=== PATIENT | female | born 1970 | race Caucasian/White ===

== ENCOUNTER 2019-03-13 17:19 | Observation (INO) ==
[2019-03-13] MEDS ORDERED: IOPAMIDOL 100 ML BOTTLE IV ONE (17:20)
[2019-03-13] MEDS ORDERED: ONDANSETRON 4 MG/2 ML VIAL IV ONE ×2 (17:31→20:07)
[2019-03-13] MEDS ORDERED: 0.9 % SODIUM CHLORIDE 1,000 ML IV ONE ×2 (17:31→22:30)
--- NOTE | 2019-03-13 17:33 | Emergency Department Note ---
Abdominal Pain HPI - General Chief Complaint: Nausea/Vomiting/Diarrhea Stated Complaint: Vomiting Time Seen by Provider: 03/13/19 17:24 Source: patient Mode of arrival: ambulatory Limitations: no limitations - History of Present Illness HPI Narrative: This 48-year-old female presents to the emergency room with onset 7 AM this morning of vomiting and abdominal pain. She is vomited more than 12 times. Sometimes she tries to drink water then vomits up green. Once it was a little red. She did not eat well yesterday. She has a previous emergency room visit around [facility] for similar. This time it is worse in location is above the [facility]. She rates her pain 7-8/10. She denies radiation. She has her gallbladder and appendix. She has had some associated chills and sweats but no fevers. REVIEW OF SYSTEMS: Denies chest pain Some shortness of breath she attributes to her pain Denies dysuria. Does have some leaking urine from ordering vomiting Has some associated headache and dizziness. Is on chronic tramadol 3 times daily for peripheral neuropathy. - Related Data Home Medications Medication Instructions Recorded Confirmed Amitriptyline HCl 25 - 50 mg PO HS 02/28/18 12/30/18 Gabapentin [Gralise] 800 mg PO TID 02/28/18 12/30/18 Insulin Detemir [Levemir] 24 unit SQ HS 02/28/18 12/30/18 Zolpidem [Ambien] 10 mg PO HSP PRN 02/28/18 12/30/18 amitriptyline 10 mg tablet 20 mg PO QHS 12/30/18 12/30/18 ascorbic acid (vitamin C) 250 mg 250 mg PO TID tab 12/30/18 12/30/18 tablet blood sugar diagnostic strips See Dose Instructions .ROUTE 12/30/18 12/30/18 .MEDSUPPLY #10 each blood-glucose meter See Dose Instructions .ROUTE 12/30/18 12/30/18 .MEDSUPPLY #1 each cephalexin 500 mg capsule 500 mg PO BID 12/30/18 12/30/18 chlorhexidine gluconate 0.12 % 15 ml MUCOUS MEM BID 12/30/18 12/30/18 mouthwash chlorhexidine gluconate 0.12 % 15 ml MUCOUS MEM BID 12/30/18 12/30/18 mouthwash ferrous sulfate 325 mg (65 mg 650 mg PO TID tab 12/30/18 12/30/18 iron) tablet fluticasone propionate 50 2 spray INTRANASAL BID g 12/30/18 12/30/18 mcg/actuation nasal spray,suspension insulin detemir (U-100) 100 See Rx Instructions SUB-Q .COMPLEX 12/30/18 12/30/18 unit/mL (3 mL) subcutaneous pen omeprazole 20 mg capsule,delayed 20 mg PO QDAY 12/30/18 12/30/18 release paroxetine 20 mg tablet 20 mg PO QDAY 12/30/18 12/30/18 simvastatin 10 mg tablet 10 mg PO QPM 12/30/18 12/30/18 vitamin B complex tablet 1 tab PO QDAY 12/30/18 12/30/18 Previous Rx's Medication Instructions Recorded Amitriptyline [Elavil] 25 mg PO HS #15 tab 03/24/18 Gabapentin [Neurontin] 300 mg PO TID #45 cap 03/24/18 Zolpidem Tartrate [Ambien] 10 mg PO QHS PRN #10 tab 03/24/18 Amitriptyline [Elavil] 25 mg PO HS #15 tab 04/23/18 Zolpidem Tartrate [Ambien] 10 mg PO HSP PRN #10 tab 04/23/18 traMADol [Ultram] 50 - 100 mg PO Q4-6HP PRN #30 tab 04/23/18 Clindamycin HCl [Cleocin] 300 mg PO QID #40 cap 06/03/18 Etodolac [Lodine] 400 mg PO BIDP PRN #20 tab 06/03/18 HYDROcodone/APAP 5/325MG [[place] 1 tab PO Q4HP PRN #12 tab 06/28/18 5-325Mg] Ondansetron [Zofran ODT] 4 mg SL Q4-6HP PRN #10 tab 06/28/18 Promethazine [Phenergan] 12.5 mg [place] Q4-6HP PRN #10 supp.rect 08/29/18 Acetaminophen W/Codeine #3 1 tab PO Q4-6HP PRN #10 tab 01/08/19 [Tylenol #3] Allergies Allergy/AdvReac Type Severity Reaction Status Date / Time Penicillins [PENICILLINS] Allergy Unknown UNK Verified 03/13/19 17:19 pregabalin [From Lyrica] Allergy Unknown Hives Verified 03/13/19 17:19 morphine AdvReac Unknown Unknown Verified 03/13/19 17:19 BEE STING Allergy Unknown UNK Uncoded 03/11/15 01:24 Abdominal Pain PMH - Past Medical History [facility] Narrative: Medical History (Last Updated 03/13/19 @ 18:10 by Kole De La Paz DO) DKA (diabetic ketoacidoses) (Chronic) Cerebrovascular accident (CVA) (Chronic ~05/02/18) Diabetes mellitus (Chronic) Hyperlipidemia (Chronic) HTN (hypertension) (Chronic) Microalbuminuria (Chronic) Pain in both feet (Chronic ~07/11/18) Obese (Chronic) Insomnia (Chronic) Constipation (Chronic) Polyp of left nasal cavity (Chronic) Snoring (Chronic) Ringing in the ears (Chronic) Memory loss (Chronic) Mood swings (Chronic) Restless sleeper (Chronic) Sleep disturbance (Chronic) Tremor (Chronic) Restless leg (Chronic) Severe headache (Chronic) Frequent headaches (Chronic) Numbness (Chronic) Weakness (Chronic) Itching (Chronic) Arthralgia (Chronic) Muscle weakness (Chronic) Muscle ache (Chronic) Neck pain (Chronic) Black tarry stools (Chronic) Sinus problem (Chronic) Difficulty hearing (Chronic) Weight gain (Chronic) Hydrosalpinx (Chronic) Hiatal hernia (Chronic) Anemia (Chronic ~02/22/18) Eosinophilic esophagitis (Chronic ~07/03/18) Skin lesion (Chronic ~07/11/18) Complex regional pain syndrome (Chronic ~07/11/18) Chronic depression (Chronic) Anxiety (Chronic) Fatigue (Chronic) Dental caries (Chronic) Gastritis (Chronic) Blurred vision (Resolved) Contusion of left foot (Resolved) Cystitis (Resolved) Fracture, rib (Resolved ~02/22/18) Fracture, tooth (Resolved) Headache (Resolved) Light headed (Resolved) Nausea (Resolved) Near syncope (Resolved ~05/02/18) Pain, dental (Resolved) Paresthesia of hand (Resolved) Pyelonephritis (Resolved) Rib fracture (Resolved) Runny nose (Resolved) SOB (shortness of breath) (Resolved) Sepsis (Resolved) Sneezing (Resolved) Sore throat (Resolved) Syncope (Resolved) UTI (urinary tract infection) (Resolved ~05/02/18) Vision changes (Resolved) Past Surgical History (Last Updated 12/30/18 @ 13:31 by Tammy Banuelos) History of (Chronic) History of colonoscopy (Chronic ~05/17/17) History of esophagogastroduodenoscopy (EGD) (Chronic ~05/17/17) History of tonsillectomy (Chronic) History of tubal ligation (Chronic) Family History (Last Updated 12/30/18 @ 13:26 by Tammy Banuelos) Brother Asthma Grandmother Heart disease Medical history: Reports: CVA (Caused by severe kidney infection.), DM (Type II now insulin using chronically.), other (Anemia (iron deficiency). Pyelonephritis. Peripheral neuropathy. Chronic insomnia.). Denies: cancer, CAD (coronary artery disease), hyperlipidemia, hypertension, myocardial infarction, thyroid disease Denies: kidney stone, peptic ulcer disease Psychiatric history: Reports: anxiety, depression DIVISION LEADER history: Reports: non-contributory - Social History Smoking status: Never smoker Alcohol use: Reports: None (Quit summer 2016) Drug use: Reports: none, marijuana (About every other day) Physical Exam Limitations: no limitations General appearance: alert, in distress (Writhhing or grabbing in pain and moaning or even crying out at other times is able to smile and times is engaging and sits up easily and well.), in no apparent distress Head: atraumatic, normocephalic Eye: Present: EOMI. Absent: nystagmus ENT: normal oropharynx, mucous membranes dry Neck: Present: trachea midline. Absent: lymphadenopathy, thyromegaly Chest: Present: symmetric chest wall rise Respiratory: Present: normal lung sounds bilaterally. Absent: respiratory distress, wheezes, stridor, accessory muscle use, prolonged expiratory phase Cardiovascular: Present: regular rate, normal rhythm. Absent: systolic murmur, diastolic murmur Abdominal: Present: soft, tenderness. Absent: distention, guarding, rebound, rigidity, organomegaly, mass Abdominal tenderness: Present: diffuse Extremities: Absent: pedal edema, pretibial edema, calf tenderness Back: Absent: CVA tenderness (R), CVA tenderness (L), spinous process tenderness Neurological: Present: alert, oriented X3 Psychiatric: Present: normal affect, normal mood Skin: Present: warm, dry Course Vital Signs Temperature 96.0 F L 03/13/19 17:19 Pulse Rate 105 H 03/13/19 17:19 Respiratory Rate 22 03/13/19 17:19 Blood Pressure 165/88 03/13/19 17:19 Pulse Oximetry (%) 100 03/13/19 17:19 Temperature 96.0 F L 03/13/19 17:19 Pulse Rate 103 H 03/13/19 20:01 Respiratory Rate 22 03/13/19 17:19 Blood Pressure 132/79 03/13/19 20:01 Pulse Oximetry (%) 100 03/13/19 20:01 Abdominal Pain - MDM Narrative Medical decision making narrative: 5:50 PM -rather significant abdominal pain with nausea and vomiting. Will do 2 view x-ray and labs. Will do ultrasound. 6:14 PM - x-ray shows no dilated loops or air-fluid levels and is actually fairly absent of much gas and fairly solid with stool but not so much low in the rectum. Await official read. Will do ultrasound based on age, obesity and location of pain to rule out gallbladder. 6:30 PM approximately - X-ray read as unremarkable abdomen 2 view series. 6:41 PM - US demonstrates mildly enlarged liver (nothing else); tiny polyp in gall bladder. Pain was distractible. 7:00 PM approximately - I discussed with patient options - encouraged for to have enema now to see if can be helpful. She agrees. 9:10 PM - Enema made no difference for improving her pain or making it worse. No stool output. Must do CT now as her pain remains unexplained and was quite severe. Could be gastroparesis related pain syndrome but was more sudden and severe. Consider renal stones but seems wrong pattern/location. 10:00 PM - CT result (abd pelvis) still pending. Signing over patient to Dr. Leary who is coming on for evening 1/2 shift. Pt is aware. - Medical Records Medical records reviewed: Yes I reviewed the patient's medical records. - Lab Data Lab results reviewed: Yes I reviewed the patient's lab results. Result diagrams: 03/13/19 17:46 03/13/19 17:46 Lab Results 03/13/19 03/13/19 03/13/19 Range/Units 17:46 17:46 19:20 WBC 11.3 H (4.5-11.0) K/mcL RBC 4.33 (4.00-5.20) M/mcL Hgb 12.4 (12.0-15.0) g/dL Hct 37.8 (36.0-48.0) % MCV 87.4 (80.0-100.0) fL MCH 28.7 (26.0-34.0) pg MCHC 32.8 (31.0-36.0) g/dL RDW 14.5 (11.5-14.5) % Plt Count 284 (140-440) K/mcL MPV 9.1 (7.4-10.4) fL Gran % 92.4 H (38.0-78.0) % Lymph % (Auto) 7.0 L (15.5-49.0) % [place] % (Auto) 0.4 L (1.0-12.0) % Eos % (Auto) 0.2 (0.0-7.0) % Baso % (Auto) 0 (0.0-2.0) % Gran # 10.4 H (1.8-8.0) K/mcL Lymph # (Auto) 0.8 L (1.5-4.8) K/mcL [place] # (Auto) 0 L (0.1-0.9) K/mcL Eos # (Auto) 0 (0.0-0.7) K/mcL Baso # (Auto) 0 (0.0-0.3) K/mcL Sodium 137 (133-145) mmol/L Potassium 4.6 (3.3-5.1) mmol/L Chloride 99 (96-108) mmol/L Carbon Dioxide 23 (22-30) mmol/L Anion Gap 15.0 (8-16) BUN 14 (6-20) mg/dl Creatinine 0.8 (0.6-1.1) mg/dl GFR Calculation 87 Glucose 269 H (70-105) mg/dL Calcium 9.7 (8.6-10.4) mg/dl Total Bilirubin 0.3 (0.0-1.0) mg/dL AST 20 (0-37) U/l ALT 23 (0-40) U/l Alkaline Phosphatase 108 (39-117) U/L C-Reactive Protein 0.5 (0.0-0.8) mg/dl Total Protein 7.6 (5.9-8.4) gm/dL Albumin 4.2 (3.2-5.2) gm/dL Globulin 3.4 (2.2-3.7) gm/dL Albumin/Globulin Ratio 1.2 (1.0-2.3) Lipase 19 (7-60) U/L Urine Color Yellow Urine Appearance Clear Urine pH 6.0 (5.0-9.0) Ur Specific [place] 1.021 (1.000-1.035) Urine Protein >=500 A (NEG) mg/dL Urine Glucose (UA) >=500 A (NEG) mg/dL Urine Ketones 20 A (NEG) mg/dL Urine Occult Blood 0.03 A (<0.03) mg/dL Urine Nitrate Neg (NEG) Urine Bilirubin Neg (NEG) mg/dL Urine Urobilinogen Neg (NEG) mg/dL Ur Leukocyte Esterase Neg (NEG) /uL Urine RBC 6 H (0-1) /hpf Urine WBC 2 (0-4) /hpf Ur Squamous Epith Cells 2 (0-4) /hpf Urine Bacteria Few A (0) /hpf Hyaline Casts 14 H (0-2) /lpf Urine Mucus Few (0) /hpf Ur Culture Indicated? Yes - Radiology Data Radiology results reviewed: Yes I reviewed the patient's radiology results. Disposition Pt seen by LEAD IOS DEVELOPER/PA only: No Clinical Impression: Abdominal pain Qualifiers: Abdominal location: generalized Qualified Code(s): R10.84 - Generalized abdominal pain Disposition: Still a Patient Condition: Undetermined Referrals: Janice Chen MD [Primary Care Provider] -
[2019-03-13] MEDS ORDERED: PHENobarb/HYOSCY/ATROPINE/SCOP 1 DOSE BOTTLE PO ONE (17:57)
--- NOTE | 2019-03-13 18:16 | XRay Report ---
CLINICAL INFORMATION: abdom pain COMPARISON: 06/28/2018 FINDINGS: The stool gas pattern is unremarkable. There is no free air, soft tissue mass, organomegaly or pathologic calcification. Multiple phleboliths of the pelvis are unchanged IMPRESSION: Normal abdomen Interpreted and Authenticated by: Leonardo Simons 03/13/19
[2019-03-13 18:33] LABS: Basophils # (Auto) 0 K/mcL (0.0-0.3); Basophils % (Auto) 0 % (0.0-2.0); Eosinophils # (Auto) 0 K/mcL (0.0-0.7); Eosinophils % (Auto) 0.2 % (0.0-7.0); Granulocytes % (Auto) 92.4 % (38.0-78.0); Hematocrit 37.8 % (36.0-48.0); Hemoglobin 12.4 g/dL (12.0-15.0); Lymphocytes # (Auto) 0.8 K/mcL (1.5-4.8); Mean Cell Volume 87.4 fL (80.0-100.0); Mean Corpuscular HGB Conc 32.8 g/dL (31.0-36.0); Mean Platelet Volume 9.1 fL (7.4-10.4); Monocytes # (Auto) 0 K/mcL (0.1-0.9); Monocytes % (Auto) 0.4 % (1.0-12.0); Platelet Count 284 K/mcL (140-440); RBC 4.33 M/mcL (4.00-5.20); Red Cell Distribution Width 14.5 % (11.5-14.5); WBC 11.3 K/mcL (4.5-11.0)
[2019-03-13 18:55] LABS: ALT/SGPT 23 U/l (0-40); AST/SGOT 20 U/l (0-37); Albumin 4.2 gm/dL (3.2-5.2); Albumin/Globulin Ratio 1.2 (1.0-2.3); Alkaline Phosphatase 108 U/L (39-117); Bilirubin,Total 0.3 mg/dL (0.0-1.0); Blood Urea Nitrogen 14 mg/dl (6-20); C-Reactive Protein 0.5 mg/dl (0.0-0.8); Calcium 9.7 mg/dl (8.6-10.4); Carbon Dioxide 23 mmol/L (22-30); Chloride 99 mmol/L (96-108); Globulin 3.4 gm/dL (2.2-3.7); Glomerular Filtration Rate 87; Glucose 269 mg/dL (70-105); Lipase 19 U/L (7-60); Potassium 4.6 mmol/L (3.3-5.1); Sodium 137 mmol/L (133-145)
--- NOTE | 2019-03-13 19:11 | Ultrasound Report ---
CLINICAL INFORMATION: RUQ abdom pain X 7d COMPARISON: None. FINDINGS: A 2 mm polyp in the gallbladder. Gallbladder otherwise normal. Common bile duct is normal: 3 mm. The right kidney, pancreas are unremarkable. The liver is moderately enlarged with a vertical dimension of 20 cm. IMPRESSION: Moderate hepatomegaly Interpreted and Authenticated by: Leonardo Simons 03/13/19
[2019-03-13] MEDS ORDERED: HYDROmorphone 2 MG/ML VIAL IM ONE (19:41)
[2019-03-13 20:21] LABS: Appearance,Urine CLEAR; Bacteria,Urine FEW /hpf (0); Bilirubin,Urine NEG (NEG); Color,Urine YELLOW; Culture Indicated,Urine YES; Glucose,Urine (UA) >=500 mg/dL (NEG); Ketones,Urine 20 mg/dL (NEG); Leukocyte Esterase,Urine NEG /uL (NEG); Mucus,Urine FEW /hpf (0); Nitrate,Urine NEG (NEG); Protein,Urine >=500 mg/dL (NEG); Specific Gravity,Urine 1.021 (1.000-1.035); Urine Blood 0.03 mg/dL (<0.03); Urine Hyaline Cast 14 /lpf (0-2); Urine RBC 6 /hpf (0-1); Urine Squamous Epithelial Cell 2 /hpf (0-4); Urine WBC 2 /hpf (0-4); Urobilinogen,Urine NEG (NEG)
[2019-03-13] MEDS ORDERED: cefTRIAXone 2 GM in DEXTROSE 5% IN WATER 50 ML IV ONE (22:24)
--- NOTE | 2019-03-13 22:32 | Emergency Department Note ---
Nausea/Vomiting/Diarrhea HPI - General Chief complaint: Nausea/Vomiting/Diarrhea Stated complaint: Vomiting Time Seen by Provider: 03/13/19 17:24 Source: patient Mode of arrival: ambulatory Limitations: no limitations - History of Present Illness HPI Narrative: 48-year-old female checked out to me at shift change by Dr. De La Paz. I reviewed his note - Related Data Home Medications Medication Instructions Recorded Confirmed Amitriptyline HCl 25 - 50 mg PO HS 02/28/18 12/30/18 Gabapentin [Gralise] 800 mg PO TID 02/28/18 12/30/18 Insulin Detemir [Levemir] 24 unit SQ HS 02/28/18 12/30/18 Zolpidem [Ambien] 10 mg PO HSP PRN 02/28/18 12/30/18 amitriptyline 10 mg tablet 20 mg PO QHS 12/30/18 12/30/18 ascorbic acid (vitamin C) 250 mg 250 mg PO TID tab 12/30/18 12/30/18 tablet blood sugar diagnostic strips See Dose Instructions .ROUTE 12/30/18 12/30/18 .MEDSUPPLY #10 each blood-glucose meter See Dose Instructions .ROUTE 12/30/18 12/30/18 .MEDSUPPLY #1 each cephalexin 500 mg capsule 500 mg PO BID 12/30/18 12/30/18 chlorhexidine gluconate 0.12 % 15 ml MUCOUS MEM BID 12/30/18 12/30/18 mouthwash chlorhexidine gluconate 0.12 % 15 ml MUCOUS MEM BID 12/30/18 12/30/18 mouthwash ferrous sulfate 325 mg (65 mg 650 mg PO TID tab 12/30/18 12/30/18 iron) tablet fluticasone propionate 50 2 spray INTRANASAL BID g 12/30/18 12/30/18 mcg/actuation nasal spray,suspension insulin detemir (U-100) 100 See Rx Instructions SUB-Q .COMPLEX 12/30/18 12/30/18 unit/mL (3 mL) subcutaneous pen omeprazole 20 mg capsule,delayed 20 mg PO QDAY 12/30/18 12/30/18 release paroxetine 20 mg tablet 20 mg PO QDAY 12/30/18 12/30/18 simvastatin 10 mg tablet 10 mg PO QPM 12/30/18 12/30/18 vitamin B complex tablet 1 tab PO QDAY 12/30/18 12/30/18 Previous Rx's Medication Instructions Recorded Amitriptyline [Elavil] 25 mg PO HS #15 tab 03/24/18 Gabapentin [Neurontin] 300 mg PO TID #45 cap 03/24/18 Zolpidem Tartrate [Ambien] 10 mg PO QHS PRN #10 tab 03/24/18 Amitriptyline [Elavil] 25 mg PO HS #15 tab 04/23/18 Zolpidem Tartrate [Ambien] 10 mg PO HSP PRN #10 tab 04/23/18 traMADol [Ultram] 50 - 100 mg PO Q4-6HP PRN #30 tab 04/23/18 Clindamycin HCl [Cleocin] 300 mg PO QID #40 cap 06/03/18 Etodolac [Lodine] 400 mg PO BIDP PRN #20 tab 06/03/18 HYDROcodone/APAP 5/325MG [[place] 1 tab PO Q4HP PRN #12 tab 06/28/18 5-325Mg] Ondansetron [Zofran ODT] 4 mg SL Q4-6HP PRN #10 tab 06/28/18 Promethazine [Phenergan] 12.5 mg [place] Q4-6HP PRN #10 supp.rect 08/29/18 Acetaminophen W/Codeine #3 1 tab PO Q4-6HP PRN #10 tab 01/08/19 [Tylenol #3] Allergies Allergy/AdvReac Type Severity Reaction Status Date / Time Penicillins [PENICILLINS] Allergy Unknown UNK Verified 03/13/19 17:19 pregabalin [From Lyrica] Allergy Unknown Hives Verified 03/13/19 17:19 morphine AdvReac Unknown Unknown Verified 03/13/19 17:19 BEE STING Allergy Unknown UNK Uncoded 03/11/15 01:24 Past Medical History - Past Medical History Medical history: Reports: CVA (Caused by severe kidney infection.), DM (Type II now insulin using chronically.), other (Anemia (iron deficiency). Pyelonephritis. Peripheral neuropathy. Chronic insomnia.). Denies: cancer, CAD (coronary artery disease), hyperlipidemia, hypertension, myocardial infarction, thyroid disease Psychiatric history: Reports: anxiety, depression UNCLAIMED PROPERTY MANAGER history: Reports: non-contributory Surgical history ED: Reports: (x2), tonsillectomy, tubal ligation - Social History smoking status: Never smoker Alcohol use: Reports: None (Quit summer 2016) Drug use: Reports: none, marijuana (About every other day) Physical Exam Limitations: no limitations General appearance: alert, in distress (Writhhing or grabbing in pain and moaning or even crying out at other times is able to smile and times is engaging and sits up easily and well.), in no apparent distress Course Vital Signs Temperature 96.0 F L 03/13/19 17:19 Pulse Rate 105 H 03/13/19 17:19 Respiratory Rate 22 03/13/19 17:19 Blood Pressure 165/88 03/13/19 17:19 Pulse Oximetry (%) 100 03/13/19 17:19 Temperature 96.0 F L 03/13/19 17:19 Pulse Rate 103 H 03/13/19 20:01 Respiratory Rate 22 03/13/19 17:19 Blood Pressure 132/79 03/13/19 20:01 Pulse Oximetry (%) 100 03/13/19 20:01 Nausea/Vomiting/Diarrhea - Lab Data Lab results reviewed: Yes I reviewed the patient's lab results. Result diagrams: 03/13/19 17:46 03/13/19 17:46 Lab Results 03/13/19 03/13/19 03/13/19 Range/Units 17:46 17:46 19:20 WBC 11.3 H (4.5-11.0) K/mcL RBC 4.33 (4.00-5.20) M/mcL Hgb 12.4 (12.0-15.0) g/dL Hct 37.8 (36.0-48.0) % MCV 87.4 (80.0-100.0) fL MCH 28.7 (26.0-34.0) pg MCHC 32.8 (31.0-36.0) g/dL RDW 14.5 (11.5-14.5) % Plt Count 284 (140-440) K/mcL MPV 9.1 (7.4-10.4) fL Gran % 92.4 H (38.0-78.0) % Lymph % (Auto) 7.0 L (15.5-49.0) % [place] % (Auto) 0.4 L (1.0-12.0) % Eos % (Auto) 0.2 (0.0-7.0) % Baso % (Auto) 0 (0.0-2.0) % Gran # 10.4 H (1.8-8.0) K/mcL Lymph # (Auto) 0.8 L (1.5-4.8) K/mcL [place] # (Auto) 0 L (0.1-0.9) K/mcL Eos # (Auto) 0 (0.0-0.7) K/mcL Baso # (Auto) 0 (0.0-0.3) K/mcL Sodium 137 (133-145) mmol/L Potassium 4.6 (3.3-5.1) mmol/L Chloride 99 (96-108) mmol/L Carbon Dioxide 23 (22-30) mmol/L Anion Gap 15.0 (8-16) BUN 14 (6-20) mg/dl Creatinine 0.8 (0.6-1.1) mg/dl GFR Calculation 87 Glucose 269 H (70-105) mg/dL Calcium 9.7 (8.6-10.4) mg/dl Total Bilirubin 0.3 (0.0-1.0) mg/dL AST 20 (0-37) U/l ALT 23 (0-40) U/l Alkaline Phosphatase 108 (39-117) U/L C-Reactive Protein 0.5 (0.0-0.8) mg/dl Total Protein 7.6 (5.9-8.4) gm/dL Albumin 4.2 (3.2-5.2) gm/dL Globulin 3.4 (2.2-3.7) gm/dL Albumin/Globulin Ratio 1.2 (1.0-2.3) Lipase 19 (7-60) U/L Urine Color Yellow Urine Appearance Clear Urine pH 6.0 (5.0-9.0) Ur Specific [place] 1.021 (1.000-1.035) Urine Protein >=500 A (NEG) mg/dL Urine Glucose (UA) >=500 A (NEG) mg/dL Urine Ketones 20 A (NEG) mg/dL Urine Occult Blood 0.03 A (<0.03) mg/dL Urine Nitrate Neg (NEG) Urine Bilirubin Neg (NEG) mg/dL Urine Urobilinogen Neg (NEG) mg/dL Ur Leukocyte Esterase Neg (NEG) /uL Urine RBC 6 H (0-1) /hpf Urine WBC 2 (0-4) /hpf Ur Squamous Epith Cells 2 (0-4) /hpf Urine Bacteria Few A (0) /hpf Hyaline Casts 14 H (0-2) /lpf Urine Mucus Few (0) /hpf Ur Culture Indicated? Yes - Radiology Data Radiology results reviewed: Yes I reviewed the patient's radiology results. CT scan abdomen pelvis with contrast read by Guillermo showed thickened bladder wall as well as heterogenous kidneys-they recommend evaluate for pyelonephritis Disposition Pt seen by PHYSICAL CHEMISTRY PROFESSOR/PA only: No Clinical Impression: Pyelonephritis, Dehydration Nausea & vomiting Qualifiers: Vomiting type: unspecified Vomiting Intractability: unspecified Qualified Code(s): R11.2 - Nausea with vomiting, unspecified Summary: Patient had an episode of nausea and vomiting after returning from CT scan despite having 2 doses of Zofran. She has received 1 L of normal saline Initial urine microscopic shows bacturia and she is mildly tachycardic. I wrote for another liter of fluid because her dipstick head showed a specific gravity of 1.030 X-ray of the abdomen 2 views showed moderate stool burden but otherwise unremarkable. Ultrasound of the abdomen was then performed which showed large liver but normal gallbladder and common bile duct. CT was done to further sort out her belly pain-it showed heterogenous kidneys which could be compatible with pyelonephritis versus contrast phase. Additionally showed thickened bladder wall. This was the [facility] read I wrote for 2 g of IV Rocephin because of likelihood of pyelonephritis. I discussed the situation with the patient and she is still having significant nausea despite Zofran. I do not think she will tolerate p.o. antibiotics at home nor will she be able to take her home medicines so she will need to come in the hospital. I then discussed the situation with Dr. Bach, our hospitalist, who agreed to accept the patient for further care and evaluation. Disposition: Xfer As Inpt ([facility]) Condition: Fair Referrals: Janice Chen MD [Primary Care Provider] -
[2019-03-13] MEDS ORDERED: PROMETHAZINE 25 MG/ML VIAL IV ONE (22:41)
--- NOTE | 2019-03-13 23:39 | Internal Med History&Physical ---
Medical - H&P: HPI Patient information: Note initiated : 03/13/19 at 11:34 pm Service Date, if different from initiated Date: [] Patient: Alexsandra Stewart a 48 y/o F admitted on for Vomiting. Chief Complaint: [] History of present illness: Ms. Stewart is a 48 year old F with history of diabetes uses insulin presents to the emergency room today for evaluation of abdominal pain. The patient notes she was at her baseline status until this morning, she did not eat anything unusual yesterday she woke up this morning with abdominal pain just above her bellybutton cramping nonradiating worse with eating something. Around 10-12 times she has vomited and has persistent nausea. There is no blood in the vomitus, she denies any melena. Since her symptoms are not improving she decided to come to the emergency room for further evaluation. She admits to having some chills but no documented fever feels hot and cold according to her. She denies any urinary complaints has chronic pain syndrome, she also admits to having some headache. She denies any cough chest pain shortness of breath skin rashes anxiety depression or any other acute concerns. In the emergency room on presentation patient was hemodynamically stable afebrile heart rate 105 blood pressure 1 7588 saturating 90% on room air. WC count is 11.3 92% is neutrophils hemoglobin is 12.4, platelets are 284. Sodium 137 potassium 4.6 bicarbonate 23 BUN 14 creatinine 0.8 glucose 269 UA is positive for proteinuria and glucosuria few bacteria negative leukocyte esterase negative nitrites. She has 2 bacteria in the urine. Lipase is 19 CT scan of the abdomen pelvis was done which shows heterogeneously kidneys, questionable diagnosis of pyelonephritis, otherwise no acute finding. X-ray abdomen was negative and ultrasound of the abdomen showed only a gallbladder polyp. Given the fact that patient is unable to tolerate p.o. diet she is being admitted to the hospital. Given the concern for possible infection, intractable nausea vomiting will admit this patient for observation and see how she does. The patient does have a history of marijuana use, on reviewing her chart it seems that she had been on a pain contract before for chronic pain and marijuana was detected and it was noted that her PCP did not wish her to continue on narcotics. All systems: reviewed and no additional remarkable complaints except as stated (as per HPI rest negative) Medical - H&P: PMH Medical history: Medical History (Last Updated 03/13/19 @ 18:16 by Kole De La Paz DO) Chronic, continuous use of opioids (Chronic) DKA (diabetic ketoacidoses) (Chronic) Cerebrovascular accident (CVA) (Chronic ~05/02/18) Diabetes mellitus (Chronic) Hyperlipidemia (Chronic) HTN (hypertension) (Chronic) Microalbuminuria (Chronic) Pain in both feet (Chronic ~07/11/18) Obese (Chronic) Insomnia (Chronic) Constipation (Chronic) Polyp of left nasal cavity (Chronic) Snoring (Chronic) Ringing in the ears (Chronic) Memory loss (Chronic) Mood swings (Chronic) Restless sleeper (Chronic) Sleep disturbance (Chronic) Tremor (Chronic) Restless leg (Chronic) Severe headache (Chronic) Frequent headaches (Chronic) Numbness (Chronic) Weakness (Chronic) Itching (Chronic) Arthralgia (Chronic) Muscle weakness (Chronic) Muscle ache (Chronic) Neck pain (Chronic) Black tarry stools (Chronic) Sinus problem (Chronic) Difficulty hearing (Chronic) Weight gain (Chronic) Hydrosalpinx (Chronic) Hiatal hernia (Chronic) Anemia (Chronic ~02/22/18) Eosinophilic esophagitis (Chronic ~07/03/18) Skin lesion (Chronic ~07/11/18) Complex regional pain syndrome (Chronic ~07/11/18) Chronic depression (Chronic) Anxiety (Chronic) Fatigue (Chronic) Dental caries (Chronic) Gastritis (Chronic) Blurred vision (Resolved) Contusion of left foot (Resolved) Cystitis (Resolved) Fracture, rib (Resolved ~02/22/18) Fracture, tooth (Resolved) Headache (Resolved) Light headed (Resolved) Nausea (Resolved) Near syncope (Resolved ~05/02/18) Pain, dental (Resolved) Paresthesia of hand (Resolved) Pyelonephritis (Resolved) Rib fracture (Resolved) Runny nose (Resolved) SOB (shortness of breath) (Resolved) Sepsis (Resolved) Sneezing (Resolved) Sore throat (Resolved) Syncope (Resolved) UTI (urinary tract infection) (Resolved ~05/02/18) Vision changes (Resolved) Surgical history: Past Surgical History (Last Updated 12/30/18 @ 13:31 by Tammy Banuelos) History of (Chronic) History of colonoscopy (Chronic ~05/17/17) History of esophagogastroduodenoscopy (EGD) (Chronic ~05/17/17) History of tonsillectomy (Chronic) History of tubal ligation (Chronic) Pertinent family history: Family History (Last Updated 12/30/18 @ 13:26 by Tammy Banuelos) Brother Asthma Grandmother Heart disease Medical - H&P: Meds Home Medications Medication Instructions Recorded Confirmed Type Insulin Detemir [Levemir] 12 unit SQ QAM 02/28/18 03/13/19 History Zolpidem [Ambien] 10 mg PO HSP PRN 02/28/18 03/13/19 History Gabapentin [Neurontin] 300 mg PO TID #45 cap 03/24/18 03/13/19 Rx traMADol [Ultram] 50 - 100 mg PO Q4-6HP PRN #30 tab 04/23/18 03/13/19 Rx amitriptyline 10 mg tablet 20 mg PO QHS 12/30/18 03/13/19 History ascorbic acid (vitamin C) 250 mg 250 mg PO TID tab 12/30/18 03/13/19 History tablet blood sugar diagnostic strips See Dose Instructions .ROUTE 12/30/18 03/13/19 History .MEDSUPPLY #10 each blood-glucose meter See Dose Instructions .ROUTE 12/30/18 03/13/19 History .MEDSUPPLY #1 each ferrous sulfate 325 mg (65 mg 650 mg PO TID tab 12/30/18 03/13/19 History iron) tablet simvastatin 10 mg tablet 10 mg PO QPM 12/30/18 03/13/19 History vitamin B complex tablet 1 tab PO QDAY 12/30/18 03/13/19 History Insulin Glargine, Human [Lantus] 20 unit SQ HS 03/13/19 03/13/19 History Allergies Allergy/AdvReac Type Severity Reaction Status Date / Time Penicillins [PENICILLINS] Allergy Unknown UNK Verified 03/13/19 17:19 pregabalin [From Lyrica] Allergy Unknown Hives Verified 03/13/19 17:19 morphine AdvReac Unknown Unknown Verified 03/13/19 17:19 BEE STING Allergy Unknown UNK Uncoded 03/11/15 01:24 Medical - H&P: Exam - Constitutional Vitals: Temp Pulse Resp BP Pulse Ox 96.0 F L 96 H 18 110/76 95 03/13/19 17:19 03/13/19 23:32 03/13/19 23:32 03/13/19 23:01 03/13/19 23:32 Exam: GENERAL: The patient is a well-developed, well-nourished in no apparent distress. Is alert and oriented x3. VITAL SIGNS: Reviewed and as noted elsewhere. HEENT: Head is normocephalic and atraumatic. Extraocular muscles are intact. Pupils are equal, round, and reactive to light. Nares appeared normal. Mouth appears any without lesions. Mucous membranes are moist. NECK: Normal to inspection, Supple, No lymphadenopathy or thyromegaly. LUNGS: Air entry equal on both sides, no wheezing, crackles or rhonchi noted. No accessory muscles of respiration HEART: Regular rate and rhythm normal, S1 and S2 heard, no Gallop, S3 or Rub Noted, No Gross murmur heard. ABDOMEN: Soft, nontender, and nondistended. Positive bowel sounds. No hepatosplenomegaly was noted. No CVA tenderness, but does have some pain in the lower back. EXTREMITIES: No cyanosis, clubbing, rash, lesions or edema. NEUROLOGIC: Cranial nerves II through XII are grossly intact. Motor and Sensory System Grossly Intact PSYCHIATRIC: Normal affect, Normal Mood. Appropriate Behavior. SKIN: No ulceration or wounds noted, No jaundice, No rash noted. Medical - H&P: Reslt - Labs CBC & Chem 7: 03/13/19 17:46 03/13/19 17:46 Labs: Short CBC 03/13/19 Range/Units 17:46 WBC 11.3 H (4.5-11.0) K/mcL Hgb 12.4 (12.0-15.0) g/dL Hct 37.8 (36.0-48.0) % Plt Count 284 (140-440) K/mcL BMP 03/13/19 17:46 Sodium 137 Potassium 4.6 Chloride 99 Carbon Dioxide 23 BUN 14 Creatinine 0.8 Glucose 269 H Calcium 9.7 Liver Function 03/13/19 Range/Units 17:46 Total Bilirubin 0.3 (0.0-1.0) mg/dL AST 20 (0-37) U/l ALT 23 (0-40) U/l Alkaline Phosphatase 108 (39-117) U/L Albumin 4.2 (3.2-5.2) gm/dL Urine 03/13/19 Range/Units 19:20 Urine Color Yellow Urine Appearance Clear Urine pH 6.0 (5.0-9.0) Ur Specific [place] 1.021 (1.000-1.035) Urine Protein >=500 A (NEG) mg/dL Urine Glucose (UA) >=500 A (NEG) mg/dL Medical - H&P: A/P - Narrative A/P Narrative: A/P Abdominal pain Nausea/vomiting. UTI DM, uncontrolled, on insulin Morbid obesity, bmi 36.6 HTN Chr pain syndrome HLD h/o CVA Plan Monitor on Obs status IV fluids IV tylenol, toradol for pain. zofran, reglan and Phenergan for nausea and vomitng, she has had a negative gastric emptying study last year. no narcotics, this was explained to the patient, except her home meds she was feeling a bit better, asking for water and wanting to eat something Insulin SSI for glucose control DVT hep sq diet carb consistent full code Social History - Social History household members: spouse marital status: occupational status: unemployed sexually active: Yes - Tobacco smoking status: Never smoker - Alcohol alcohol intake frequency: does not drink - Substance use substance use type: marijuana
[2019-03-14] MEDS ORDERED: KETOROLAC 15 MG/ML VIAL IV PRN (00:03)
[2019-03-14] MEDS ORDERED: DEXTROSE 31 GM ORAL.SUSP PO PRN (00:03)
[2019-03-14] MEDS ORDERED: ONDANSETRON 4 MG/2 ML VIAL IV PRN (00:03)
[2019-03-14] MEDS ORDERED: ACETAMINOPHEN 1,000 MG/100 ML BOTTLE IV PRN (00:03)
[2019-03-14] MEDS ORDERED: NALOXONE HCL 0.4 MG/ML VIAL IV PRN (00:03)
[2019-03-14] MEDS ORDERED: traZODone HCL 50 MG TABLET PO PRN (00:03)
[2019-03-14] MEDS ORDERED: ZOLPIDEM 5 MG TABLET PO PRN (00:03)
[2019-03-14] MEDS ORDERED: traMADol 50 MG TABLET PO PRN (00:03)
[2019-03-14] MEDS ORDERED: MAGNESIUM HYDROXIDE 30 ML ORAL.SUSP PO PRN (00:03)
[2019-03-14] MEDS ORDERED: DEXTROSE 50% 50 ML VIAL IV PRN (00:03)
[2019-03-14] MEDS ORDERED: AMITRIPTYLINE 10 MG TABLET PO SCH (00:03)
[2019-03-14] MEDS ORDERED: PROMETHAZINE 25 MG/ML VIAL IV PRN (00:03)
[2019-03-14 00:11] LABS: Amylase 29 U/L (28-100); Lipase 15 U/L (7-60)
[2019-03-14] MEDS ORDERED: METOCLOPRAMIDE 10 MG/2 ML VIAL ONE ×2 (00:32→05:23)
[2019-03-14] MEDS ORDERED: PANTOPRAZOLE 40 MG VIAL IV ONE (00:34)
[2019-03-14] MEDS ORDERED: traZODone HCL 50 MG TABLET ONE (00:35)
[2019-03-14] MEDS ORDERED: GABAPENTIN 300 MG CAPSULE ONE (00:35)
[2019-03-14] MEDS: LACTATED RINGERS 1,000 ML IV SCH ×2 (00:40→07:53)
[2019-03-14] MEDS: PANTOPRAZOLE 40 MG VIAL IV SCH ×2 (00:45→08:45)
[2019-03-14] MEDS: METOCLOPRAMIDE 10 MG/2 ML VIAL IV SCH ×3 (00:45→13:10)
[2019-03-14] MEDS ORDERED: KETOROLAC 15 MG/ML VIAL ONE (00:49)
[2019-03-14] MEDS: GABAPENTIN 300 MG CAPSULE PO SCH ×2 (00:52→08:46)
[2019-03-14 01:08] LABS: Amphetamine Screen,Urine NONE DETECTED (NONDETECTED); Barbiturate Screen,Urine NONE DETECTED (NONDETECTED); Benzodiazepines Screen,Urine NONE DETECTED (NONDETECTED); Cannabinoid Screen,Urine SUSPECT POSITIVE (NONDETECTED); Cocaine Screen,Urine NONE DETECTED (NONDETECTED); Opiate Screen,Urine NONE DETECTED (NONDETECTED); Oxycodone, Urine Screen NONE DETECTED (NONDETECTED); Phencyclidine Screen,Urine NONE DETECTED (NONDETECTED)
--- NOTE | 2019-03-14 03:36 | Cat Scan Report ---
CLINICAL INFORMATION: Abdominal pain COMPARISON: Abdomen and pelvic CT 05/21/2009 TECHNIQUE: Following enteric contrast, 80 cc of Isovue-300 were injected intravenously, and 60 seconds later, 0.625 mm helical slices were obtained from the mid heart through the subtrochanteric regions. Following reconstruction, 2.5 mm sagittal, coronal and axial reformatted images were processed and reviewed at bone, lung and soft tissue windows. Five minutes later, 0.625 mm helical slices were obtained from the mid heart through the kidneys and viewed at soft tissue windows.The exam was performed using radiation dose optimization techniques including, but not limited to, automated exposure control, adjustment of the mA and/or kV according to patient size and use of iterative reconstruction technique. FINDINGS: Lung bases show no abnormality - no effusion. A small hiatal hernia and mild concentric thickening of the distal esophagus is a new finding. The visualized heart is grossly normal. Images through the abdomen show the gallbladder and bile ducts, liver, both kidneys, adrenal glands, spleen, pancreas, and aorta, including aortic branches, to be normal in size, configuration and attenuation without focal lesion. There is no free air, free fluid or adenopathy. The stomach, small bowel, appendix and large bowel are unremarkable. Images through the pelvis show an anteflexed uterus which is mildly enlarged (11 x 6 cm), but stable from 2009 CT. Bicornuate configuration again noted. A 3.6 cm mural fibroid in the left uterine body is new from the previous study. Both ovaries are unremarkable. Bone windows show no osseous abnormality IMPRESSION: 1. No cause identified for acute abdominal pain 2. Small hiatal hernia and mild concentric wall thickening of distal esophagus most likely due to peptic disease. This is a new finding 3. 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 The fibroid is new from the 2009 CT. 4. Small periumbilical hernia containing only mesenteric fat - stable Interpreted and Authenticated by: Leonardo Simons 03/14/19
[2019-03-14 05:58] LABS: Basophils # (Auto) 0 K/mcL (0.0-0.3); Basophils % (Auto) 0.3 % (0.0-2.0); Eosinophils # (Auto) 0.1 K/mcL (0.0-0.7); Eosinophils % (Auto) 0.6 % (0.0-7.0); Granulocytes % (Auto) 79.1 % (38.0-78.0); Hematocrit 31.8 % (36.0-48.0); Hemoglobin 10.5 g/dL (12.0-15.0); Lymphocytes # (Auto) 1.4 K/mcL (1.5-4.8); Lymphocytes % (Auto) 15.6 % (15.5-49.0); Mean Cell Volume 88.2 fL (80.0-100.0); Mean Corpuscular HGB Conc 33.1 g/dL (31.0-36.0); Mean Platelet Volume 8.8 fL (7.4-10.4); Monocytes # (Auto) 0.4 K/mcL (0.1-0.9); Monocytes % (Auto) 4.4 % (1.0-12.0); Platelet Count 256 K/mcL (140-440); Red Cell Distribution Width 14.4 % (11.5-14.5)
[2019-03-14] MEDS ORDERED: 0.9 % SODIUM CHLORIDE 10 ML SYRINGE IV SCH (06:00)
[2019-03-14 06:27] LABS: ALT/SGPT 16 U/l (0-40); AST/SGOT 15 U/l (0-37); Albumin 3.5 gm/dL (3.2-5.2); Albumin/Globulin Ratio 1.2 (1.0-2.3); Alkaline Phosphatase 86 U/L (39-117); Bilirubin,Direct < 0.2 mg/dL (0.0-0.3); Bilirubin,Total 0.2 mg/dL (0.0-1.0); Blood Urea Nitrogen 15 mg/dl (6-20); Calcium 8.3 mg/dl (8.6-10.4); Carbon Dioxide 21 mmol/L (22-30); Chloride 100 mmol/L (96-108); Glomerular Filtration Rate 67; Glucose 197 mg/dL (70-105); Lactate Dehydrogenase 331 U/L (94-250); Potassium 4.4 mmol/L (3.3-5.1); Sodium 135 mmol/L (133-145); Triglycerides 138 mg/dl (<150); Uric Acid 4.6 mg/dL (2.5-8.0)
[2019-03-14] MEDS: INSULIN LISPRO 1 UNIT/0.01 ML UNIT SQ SCH ×2 (08:45→11:55)
[2019-03-14] MEDS ORDERED: HEPARIN 5,000 UNIT/ML VIAL SQ SCH (09:00)
[2019-03-14] MEDS ORDERED: ASCORBIC ACID 500 MG TABLET PO SCH (09:00)
--- NOTE | 2019-03-14 11:27 | Discharge Summary ---
Medical - DS: Prov Patient information: Note initiated : 03/14/19 at 11:25 am Service Date, if different from initiated Date: [] Patient: Alexsandra Stewart 48 y/o F admitted on 03/13/19 for Vomiting. Chief Complaint: [] Date of admission: 03/13/19 23:52 Discharge date: 03/14/19 Primary care physician: Janice Chen Discharging clinician: Ann Bach Medical - DS: Meds - Discharge Medications Prescriptions: Ondansetron [Zofran ODT] 4 mg SL Q4-6HP PRN #10 tab PRN Reason: Nausea And Vomiting Pantoprazole [Protonix] 40 mg PO QAMAC #42 tab Active and Home Medications: Home Medications Insulin Detemir [Levemir] 12 unit SQ QAM 02/28/18 [History Confirmed 03/14/19 Last Taken 03/13/19 08:00] Zolpidem [Ambien] 10 mg PO HSP PRN 02/28/18 [History Confirmed 03/14/19 Last Taken 03/12/19 22:00] Gabapentin [Neurontin] 300 mg PO TID #45 cap 03/24/18 [Rx Confirmed 03/14/19 Last Taken 03/12/19 18:00] traMADol [Ultram] 50 - 100 mg PO Q4-6HP PRN #30 tab 04/23/18 [Rx Confirmed 03/14/19 Last Taken 03/12/19 21:00] amitriptyline 10 mg tablet 20 mg PO QHS 12/30/18 [History Confirmed 03/14/19 Last Taken 03/12/19 22:00] ascorbic acid (vitamin C) 250 mg tablet 250 mg PO DAILY tab 12/30/18 [History Confirmed 03/14/19 Last Taken 03/07/19 08:00] blood sugar diagnostic strips See Dose Instructions .ROUTE .MEDSUPPLY #10 each 12/30/18 [History Confirmed 03/13/19 Last Taken Unknown] blood-glucose meter See Dose Instructions .ROUTE .MEDSUPPLY #1 each 12/30/18 [History Confirmed 03/13/19 Last Taken Unknown] ferrous sulfate 325 mg (65 mg iron) tablet 650 mg PO TID tab 12/30/18 [History Confirmed 03/14/19 Last Taken 03/07/19 18:00] simvastatin 10 mg tablet 10 mg PO QPM 12/30/18 [History Confirmed 03/14/19 Last Taken 03/12/19 08:00] vitamin B complex tablet 1 tab PO QDAY 12/30/18 [History Confirmed 03/14/19 Last Taken 03/07/19] Insulin Glargine, Human [Lantus] 20 unit SQ HS 03/13/19 [History Confirmed 03/14/19 Last Taken 03/12/19 21:00] Medical - DS: Hosp Hospital course: Ms. Stewart is a 48 year old F with history of diabetes uses insulin presents to the emergency room today for evaluation of abdominal pain. The patient notes she was at her baseline status until this morning, she did not eat anything unusual yesterday she woke up this morning with abdominal pain just above her bellybutton cramping nonradiating worse with eating something. Around 10-12 times she has vomited and has persistent nausea. There is no blood in the vomitus, she denies any melena. Since her symptoms are not improving she decided to come to the emergency room for further evaluation. She admits to having some chills but no documented fever feels hot and cold according to her. She denies any urinary complaints has chronic pain syndrome, she also admits to having some headache. She denies any cough chest pain shortness of breath skin rashes anxiety depression or any other acute concerns. In the emergency room on presentation patient was hemodynamically stable afebrile heart rate 105 blood pressure 1 7588 saturating 90% on room air. WC count is 11.3 92% is neutrophils hemoglobin is 12.4, platelets are 284. Sodium 137 potassium 4.6 bicarbonate 23 BUN 14 creatinine 0.8 glucose 269 UA is positive for proteinuria and glucosuria few bacteria negative leukocyte esterase negative nitrites. She has 2 bacteria in the urine. Lipase is 19 CT scan of the abdomen pelvis was done which shows heterogeneously kidneys, questionable diagnosis of pyelonephritis, otherwise no acute finding. X-ray abd omen was negative and ultrasound of the abdomen showed only a gallbladder polyp. Given the fact that patient is unable to tolerate p.o. diet she is being admitted to the hospital. Given the concern for possible infection, intractable nausea vomiting will admit this patient for observation and see how she does. The patient does have a history of marijuana use, on reviewing her chart it seems that she had been on a pain contract before for chronic pain and marijuana was detected and it was noted that her PCP did not wish her to continue on narcotics. 03/14 Patient see nexamined this AM CT official report has no concern for pyelonephritis. Utox positive for marijuana. (cyclical vomiting? ) Patient is able to tolerate po diet well, she still has some abdominal pain, etiology of which is not clear. CT also mentioned thickening of distal esophagus and haital hernia, patient has been started on pantoprazole for same. Will benefit from outpatient GI evaluation for EGD Scopy. PCP to follow up for same. Patient at the time of discharge is hemodynamically stable, and tolerating po diet well. Discharge diagnosis: nayusea /vomiting, UTI - Time Spent with Patient Total time spent providing and/or coordinating discharge services: Less than 30 minutes Medical - DS: Exam - Constitutional Vitals: Vital Signs Temp Pulse Pulse Resp BP BP BP 03/14/19 06:51 99.7 F H 20 123/73 03/14/19 04:27 97.9 F 105 H 18 116/70 03/13/19 23:55 97.7 F 101 H 20 132/52 03/13/19 23:52 97.7 F 101 H 20 132/52 03/13/19 23:49 97 H 16 123/92 03/13/19 23:32 96 H 18 03/13/19 23:06 97 H 18 03/13/19 23:01 99 H 18 110/76 03/13/19 22:44 99 H 18 03/13/19 22:38 99 H 16 132/86 03/13/19 20:01 103 H 132/79 03/13/19 19:31 102 H 165/85 03/13/19 19:28 103 H 153/96 03/13/19 17:19 96.0 F L 105 H 22 165/88 Pulse Ox 03/14/19 06:51 93 03/14/19 04:27 94 03/13/19 23:55 97 03/13/19 23:52 97 03/13/19 23:49 97 03/13/19 23:32 95 03/13/19 23:06 100 03/13/19 23:01 98 03/13/19 22:44 97 03/13/19 22:38 98 03/13/19 20:01 100 03/13/19 19:31 100 03/13/19 19:28 99 03/13/19 17:19 100 Intake and Output 03/13/19 03/14/19 03/14/19 21:59 05:59 13:59 Intake Total 9841 949 0119 Output Total 500 Balance 8891 303 6477 Intake: IV 8549 235 8321 Sodium Chloride 0.9% 1,000 ml @ 1000 700 Wide Open IV BOLUS ONE Rx#: [id number] Lactated Ringers 1,000 ml @ 150 1000 mls/hr IV .[id number] [facility] [place] Rx#: [id number] Rocephin 2 gm In Dextrose 5% in 50 Water 50 ml @ 100 mls/hr IV ONCE ONE Rx#:[id number] Oral 100 Output: Void Amount 250 Emesis 250 Other: Urine Color Dark Yellow Urine Odor Foul # Emeses 1 Weight 220 lb 214 lb Additional comments: Constitutional; Afebrile, cooperative, alert, not in distress. Respiratory system: Air Entry equal on both sides, No crackles or wheezing, no rhonchi. CVS- Rate rhythm regular, S1,S2 heard, no gallop, no rub. Abdomen- Soft nontender abdomen, no organomegaly, no tenderness, no guarding or rigidity, [employer]- AOOx3, moving all extremities, no gross focal deficit noted. Medical - DS: Data Labs on day of discharge: Labs from last 24 hours 03/14/19 03/14/19 03/13/19 04:28 04:28 23:06 WBC 9.0 RBC 3.60 L Hgb 10.5 L Hct 31.8 L MCV 88.2 MCH 29.2 MCHC 33.1 RDW 14.4 Plt Count 256 MPV 8.8 Gran % 79.1 H Lymph % (Auto) 15.6 [place] % (Auto) 4.4 Eos % (Auto) 0.6 Baso % (Auto) 0.3 Gran # 7.1 Lymph # (Auto) 1.4 L [place] # (Auto) 0.4 Eos # (Auto) 0.1 Baso # (Auto) 0 Sodium 135 Potassium 4.4 Chloride 100 Carbon Dioxide 21 L Anion Gap 14.0 BUN 15 Creatinine 1.0 GFR Calculation 67 Glucose 197 H Uric Acid 4.6 Calcium 8.3 L Phosphorus 3.0 Magnesium 2.0 Total Bilirubin 0.2 Direct Bilirubin < 0.2 GGT 22 AST 15 ALT 16 Alkaline Phosphatase 86 Lactate Dehydrogenase 331 H C-Reactive Protein Total Protein 6.5 Albumin 3.5 Globulin 3.0 Albumin/Globulin Ratio 1.2 Triglycerides 138 Amylase 29 Lipase 15 Urine Color Urine Appearance Urine pH Ur Specific [place] Urine Protein Urine Glucose (UA) Urine Ketones Urine Occult Blood Urine Nitrate Urine Bilirubin Urine Urobilinogen Ur Leukocyte Esterase Urine RBC Urine WBC Ur Squamous Epith Cells Urine Bacteria Hyaline Casts Urine Mucus Ur Culture Indicated? Urine Opiates Screen Ur Opiates Confirm Ur Oxycodone Screen Urine Methadone Screen Ur Methadone Confirm Ur Barbiturates Screen Ur Barbiturate Confirm Ur Phencyclidine Scrn Urine PCP Confirm Ur Amphetamines Screen U Amphetamines Confirm U Benzodiazepines Scrn U Benzodiazepine Confm Urine Cocaine Screen Urine Cocaine Confirm U Cannabinoids Confirm U Marijuana (THC) Screen 03/13/19 03/13/19 03/13/19 19:20 19:20 17:46 WBC RBC Hgb Hct MCV MCH MCHC RDW Plt Count MPV Gran % Lymph % (Auto) [place] % (Auto) Eos % (Auto) Baso % (Auto) Gran # Lymph # (Auto) [place] # (Auto) Eos # (Auto) Baso # (Auto) Sodium 137 Potassium 4.6 Chloride 99 Carbon Dioxide 23 Anion Gap 15.0 BUN 14 Creatinine 0.8 GFR Calculation 87 Glucose 269 H Uric Acid Calcium 9.7 Phosphorus Magnesium Total Bilirubin 0.3 Direct Bilirubin GGT AST 20 ALT 23 Alkaline Phosphatase 108 Lactate Dehydrogenase C-Reactive Protein 0.5 Total Protein 7.6 Albumin 4.2 Globulin 3.4 Albumin/Globulin Ratio 1.2 Triglycerides Amylase Lipase 19 Urine Color Yellow Urine Appearance Clear Urine pH 6.0 Ur Specific [place] 1.021 Urine Protein >=500 A Urine Glucose (UA) >=500 A Urine Ketones 20 A Urine Occult Blood 0.03 A Urine Nitrate Neg Urine Bilirubin Neg Urine Urobilinogen Neg Ur Leukocyte Esterase Neg Urine RBC 6 H Urine WBC 2 Ur Squamous Epith Cells 2 Urine Bacteria Few A Hyaline Casts 14 H Urine Mucus Few Ur Culture Indicated? Yes Urine Opiates Screen None detected Ur Opiates Confirm Not Reportable Ur Oxycodone Screen None detected Urine Methadone Screen None detected Ur Methadone Confirm Not Reportable Ur Barbiturates Screen None detected Ur Barbiturate Confirm Not Reportable Ur Phencyclidine Scrn None detected Urine PCP Confirm Not Reportable Ur Amphetamines Screen None detected U Amphetamines Confirm Not Reportable U Benzodiazepines Scrn None detected U Benzodiazepine Confm Not Reportable Urine Cocaine Screen None detected Urine Cocaine Confirm Not Reportable U Cannabinoids Confirm Not Reportable U Marijuana (THC) Screen Suspect positive A 03/13/19 17:46 WBC 11.3 H RBC 4.33 Hgb 12.4 Hct 37.8 MCV 87.4 MCH 28.7 MCHC 32.8 RDW 14.5 Plt Count 284 MPV 9.1 Gran % 92.4 H Lymph % (Auto) 7.0 L [place] % (Auto) 0.4 L Eos % (Auto) 0.2 Baso % (Auto) 0 Gran # 10.4 H Lymph # (Auto) 0.8 L [place] # (Auto) 0 L Eos # (Auto) 0 Baso # (Auto) 0 Sodium Potassium Chloride Carbon Dioxide Anion Gap BUN Creatinine GFR Calculation Glucose Uric Acid Calcium Phosphorus Magnesium Total Bilirubin Direct Bilirubin GGT AST ALT Alkaline Phosphatase Lactate Dehydrogenase C-Reactive Protein Total Protein Albumin Globulin Albumin/Globulin Ratio Triglycerides Amylase Lipase Urine Color Urine Appearance Urine pH Ur Specific [place] Urine Protein Urine Glucose (UA) Urine Ketones Urine Occult Blood Urine Nitrate Urine Bilirubin Urine Urobilinogen Ur Leukocyte Esterase Urine RBC Urine WBC Ur Squamous Epith Cells Urine Bacteria Hyaline Casts Urine Mucus Ur Culture Indicated? Urine Opiates Screen Ur Opiates Confirm Ur Oxycodone Screen Urine Methadone Screen Ur Methadone Confirm Ur Barbiturates Screen Ur Barbiturate Confirm Ur Phencyclidine Scrn Urine PCP Confirm Ur Amphetamines Screen U Amphetamines Confirm U Benzodiazepines Scrn U Benzodiazepine Confm Urine Cocaine Screen Urine Cocaine Confirm U Cannabinoids Confirm U Marijuana (THC) Screen Preliminary micro results at discharge 03/13/19 19:20 Urine Culture - Preliminary Urine - Clean Void [facility] - DS: A/P - Patient/Caregiver Discharge Instructions Activity: increase activity as tolerated Diet: Consistent Carbohydrate Additional Instructions: FOllow up with PCP in 1 week go to the ER if worsening symptoms fever, chills or any othe acute concern Please make sure your PCP refers you to a GI specialist for a Upper EGD scopy. Take pantoprazole 30 mins before a meal Avoid using marijuana, as in some patient this can trigger intractable pain,nausea and vomiting. - Follow up Plan Follow up with: Janice Chen MD [Primary Care Provider] - Disposition: Home, Self-Care Prognosis: Fair Rehab Potential: Fair I certify that the patient requires SNF services: No Overall status at discharge: patient is progressing back to baseline Medical - DS: Qual - VTE Deep Vein Thrombosis/Pulmonary Embolism Present on Admission: No
[2019-03-14] MEDS ORDERED: cefTRIAXone 2 GM in DEXTROSE 5% IN WATER 50 ML IV SCH (14:00)
[2019-03-14] MEDS ORDERED: SIMVASTATIN 10 MG TABLET PO SCH (21:00)
[2019-03-18 08:22] LABS: Cannabinoid Confirmation POSITIVE (N)
== END 2019-03-14 13:58 | disposition home or self-care (01) ==
LOC: ED 17:19 → MEDSUR 17:19
PROVIDERS: ADMIT Internal Medicine; ATTEND Internal Medicine

== ENCOUNTER 2019-05-01 09:12 | Observation (INO) ==
[2019-05-01] MEDS ORDERED: IOPAMIDOL 100 ML BOTTLE IV ONE (09:13)
[2019-05-01] MEDS ORDERED: 0.9 % SODIUM CHLORIDE 2,000 ML IV ONE (09:38)
[2019-05-01] MEDS ORDERED: ONDANSETRON 4 MG/2 ML VIAL IV ONE ×2 (09:38→10:33)
--- NOTE | 2019-05-01 09:44 | Emergency Department Note ---
Abdominal Pain HPI - General Chief Complaint: Abdominal Pain Stated Complaint: Abd pain and nausea Time Seen by Provider: 05/01/19 09:33 Source: patient Mode of arrival: ambulatory Limitations: no limitations - History of Present Illness HPI Narrative: 48-year-old female discharged from a hospital 6 weeks ago after a round of pyelonephritis, presents today for nausea and vomiting that started this morning. She is now having severe epigastric pain. She cannot hold anything down. She states she did finish her antibiotic for the previous infection me ntioned above. She is having some shortness of breath as well - Related Data Home Medications Medication Instructions Recorded Confirmed Insulin Detemir [Levemir] 12 unit SQ QAM 02/28/18 03/14/19 Zolpidem [Ambien] 10 mg PO HSP PRN 02/28/18 03/14/19 amitriptyline 10 mg tablet 20 mg PO QHS 12/30/18 03/14/19 ascorbic acid (vitamin C) 250 mg 250 mg PO DAILY tab 12/30/18 03/14/19 tablet blood sugar diagnostic strips See Dose Instructions .ROUTE 12/30/18 03/13/19 .MEDSUPPLY #10 each blood-glucose meter See Dose Instructions .ROUTE 12/30/18 03/13/19 .MEDSUPPLY #1 each ferrous sulfate 325 mg (65 mg 650 mg PO TID tab 12/30/18 03/14/19 iron) tablet simvastatin 10 mg tablet 10 mg PO QPM 12/30/18 03/14/19 vitamin B complex tablet 1 tab PO QDAY 12/30/18 03/14/19 Insulin Glargine, Human [Lantus] 20 unit SQ HS 03/13/19 03/14/19 Previous Rx's Medication Instructions Recorded Gabapentin [Neurontin] 300 mg PO TID #45 cap 03/24/18 traMADol [Ultram] 50 - 100 mg PO Q4-6HP PRN #30 tab 04/23/18 Levofloxacin [Levaquin] 500 mg PO DAILY #5 tab 03/14/19 Ondansetron [Zofran ODT] 4 mg SL Q4-6HP PRN #10 tab 03/14/19 Pantoprazole [Protonix] 40 mg PO QAMAC #42 tab 03/14/19 Allergies Allergy/AdvReac Type Severity Reaction Status Date / Time bee venom protein (honey bee) Allergy Intermediate Swelling Verified 05/01/19 09:13 pregabalin [From Lyrica] Allergy Mild Hives Verified 05/01/19 09:13 morphine AdvReac Mild Hallucinati Verified 05/01/19 09:13 ng Penicillins [PENICILLINS] AdvReac Mild Vomiting Verified 05/01/19 09:13 Review of Systems All systems ED: reviewed and negative except as stated. Abdominal Pain PMH - Past Medical History Attestation: Yes: The following information was validated with the patient. PMFSH Narrative: Family History (Last Updated 12/30/18 @ 13:26 by Tammy Banuelos) Brother Asthma Grandmother Heart disease Medical History (Last Updated 03/13/19 @ 18:16 by Kole De La Paz DO) Chronic, continuous use of opioids (Chronic) DKA (diabetic ketoacidoses) (Chronic) Cerebrovascular accident (CVA) (Chronic ~05/02/18) Diabetes mellitus (Chronic) Hyperlipidemia (Chronic) HTN (hypertension) (Chronic) Microalbuminuria (Chronic) Pain in both feet (Chronic ~07/11/18) Obese (Chronic) Insomnia (Chronic) Constipation (Chronic) Polyp of left nasal cavity (Chronic) Snoring (Chronic) Ringing in the ears (Chronic) Memory loss (Chronic) Mood swings (Chronic) Restless sleeper (Chronic) Sleep disturbance (Chronic) Tremor (Chronic) Restless leg (Chronic) Severe headache (Chronic) Frequent headaches (Chronic) Numbness (Chronic) Weakness (Chronic) Itching (Chronic) Arthralgia (Chronic) Muscle weakness (Chronic) Muscle ache (Chronic) Neck pain (Chronic) Black tarry stools (Chronic) Sinus problem (Chronic) Difficulty hearing (Chronic) Weight gain (Chronic) Hydrosalpinx (Chronic) Hiatal hernia (Chronic) Anemia (Chronic ~02/22/18) Eosinophilic esophagitis (Chronic ~07/03/18) Skin lesion (Chronic ~07/11/18) Complex regional pain syndrome (Chronic ~07/11/18) Chronic depression (Chronic) Anxiety (Chronic) Fatigue (Chronic) Dental caries (Chronic) Gastritis (Chronic) Blurred vision (Resolved) Contusion of left foot (Resolved) Cystitis (Resolved) Fracture, rib (Resolved ~02/22/18) Fracture, tooth (Resolved) Headache (Resolved) Light headed (Resolved) Nausea (Resolved) Near syncope (Resolved ~05/02/18) Pain, dental (Resolved) Paresthesia of hand (Resolved) Pyelonephritis (Resolved) Rib fracture (Resolved) Runny nose (Resolved) SOB (shortness of breath) (Resolved) Sepsis (Resolved) Sneezing (Resolved) Sore throat (Resolved) Syncope (Resolved) UTI (urinary tract infection) (Resolved ~05/02/18) Vision changes (Resolved) Past Surgical History (Last Updated 12/30/18 @ 13:31 by Tammy Banuelos) History of (Chronic) History of colonoscopy (Chronic ~05/17/17) History of esophagogastroduodenoscopy (EGD) (Chronic ~05/17/17) History of tonsillectomy (Chronic) History of tubal ligation (Chronic) Medical history: Reports: CVA (Caused by severe kidney infection.), DM (Type II now insulin using chronically.), other (Anemia (iron deficiency). Pyelonephritis. Peripheral neuropathy. Chronic insomnia.). Denies: cancer, CAD (coronary artery disease), hyperlipidemia, hypertension, myocardial infarction, thyroid disease Psychiatric history: Reports: anxiety, depression RESERVATIONS SPECIALIST history: Reports: non-contributory - Social History Smoking status: Never smoker Alcohol use: Reports: None (Quit summer 2016) Drug use: Reports: none, marijuana (About every other day) Physical Exam Some acute distress secondary to vomiting and stomach pain. Normocephalic atraumatic. Conjunctive are clear sclerae white and icteric. Pupils are reactive and symmetrical bilaterally. No nasal discharge or congestion. Oropharynx pink and moist. Posterior pharynx is clear. Neck is supple without lymphadenopathy thyromegaly or carotid bruit. Heart no murmur appreciated. Lungs are clear to auscultation bilaterally without wheezes rales rhonchi or respiratory distress. Abdomen is tender in the epigastrium but there is no guarding. No pedal edema. +2 radial pulse. Alert and oriented. Patient has dramatic presentation but is alert oriented able to answer questions properly. Hemodynamically stable Limitations: no limitations Course Vital Signs Temperature 96.7 F L 05/01/19 09:13 Pulse Rate 84 05/01/19 09:13 Respiratory Rate 24 H 05/01/19 09:13 Blood Pressure 170/90 05/01/19 09:13 Pulse Oximetry (%) 97 05/01/19 09:13 Temperature 96.7 F L 05/01/19 09:13 Pulse Rate 92 H 05/01/19 13:24 Respiratory Rate 22 05/01/19 13:54 Blood Pressure 177/94 05/01/19 13:47 Pulse Oximetry (%) 100 05/01/19 13:47 Abdominal Pain - Lab Data Lab results reviewed: Yes I reviewed the patient's lab results. Result diagrams: 05/01/19 10:02 05/01/19 10:02 Lab Results 05/01/19 05/01/19 05/01/19 Range/Units 10:02 10:02 10:02 WBC 8.8 (4.5-11.0) K/mcL RBC 4.03 (4.00-5.20) M/mcL Hgb 11.2 L (12.0-15.0) g/dL Hct 33.9 L (36.0-48.0) % POC Hct 34.0 L (36.0-48.0) % MCV 84.3 (80.0-100.0) fL MCH 27.8 (26.0-34.0) pg MCHC 33.0 (31.0-36.0) g/dL RDW 14.3 (11.5-14.5) % Plt Count 245 (140-440) K/mcL MPV 9.1 (7.4-10.4) fL Gran % 85.1 H (38.0-78.0) % Lymph % (Auto) 10.7 L (15.5-49.0) % [place] % (Auto) 1.6 (1.0-12.0) % Eos % (Auto) 2.3 (0.0-7.0) % Baso % (Auto) 0.3 (0.0-2.0) % Gran # 7.5 (1.8-8.0) K/mcL Lymph # (Auto) 0.9 L (1.5-4.8) K/mcL [place] # (Auto) 0.1 (0.1-0.9) K/mcL Eos # (Auto) 0.2 (0.0-0.7) K/mcL Baso # (Auto) 0 (0.0-0.3) K/mcL VBG Lactic Acid 1.5 (0.5-2.0) mmol/L POC Sodium 138 (133-145) mmol/L Sodium 137 (133-145) mmol/L POC Potassium 4.4 (3.3-5.1) mmol/L Potassium 4.3 (3.3-5.1) mmol/L POC Chloride 101 (96-108) mmol/L Chloride 97 (96-108) mmol/L Carbon Dioxide 27 (22-30) mmol/L POC Total CO2 27 (22-30) mmol/L Anion Gap 13.0 (8-16) POC BUN 18 (6-20) mg/dl BUN 18 (6-20) mg/dl Creatinine 1.0 (0.6-1.1) mg/dl POC Creatinine 0.9 (0.6-1.1) mg/dl GFR Calculation 67 Glucose 199 H (70-105) mg/dL POC Glucose 201 H (70-105) mg/dL Calcium 9.8 (8.6-10.4) mg/dl POC WB Ioniz Calcium 1.14 L (1.16-1.32) mmol/L Total Bilirubin 0.3 (0.0-1.0) mg/dL AST 20 (0-37) U/l ALT 18 (0-40) U/l Alkaline Phosphatase 87 (39-117) U/L Total Protein 7.4 (5.9-8.4) gm/dL Albumin 4.2 (3.2-5.2) gm/dL Globulin 3.2 (2.2-3.7) gm/dL Albumin/Globulin Ratio 1.3 (1.0-2.3) Amylase 43 (28-100) U/L Lipase 23 (7-60) U/L Urine Color Urine Appearance Urine pH (5.0-9.0) Ur Specific [place] (1.000-1.035) Urine Protein (NEG) mg/dL Urine Glucose (UA) (NEG) mg/dL Urine Ketones (NEG) mg/dL Urine Occult Blood (<0.03) mg/dL Urine Nitrate (NEG) Urine Bilirubin (NEG) mg/dL Urine Urobilinogen (NEG) mg/dL Ur Leukocyte Esterase (NEG) /uL Urine RBC (0-1) /hpf Urine WBC (0-4) /hpf Ur Squamous Epith Cells (0-4) /hpf Amorphous Crystals (0) /hpf Urine Bacteria (0) /hpf Urine Mucus (0) /hpf Ur Culture Indicated? Urine Opiates Screen (NONDETECTED) Ur Oxycodone Screen (NONDETECTED) Urine Methadone Screen (NONDETECTED) Ur Barbiturates Screen (NONDETECTED) Ur Phencyclidine Scrn (NONDETECTED) Ur Amphetamines Screen (NONDETECTED) U Benzodiazepines Scrn (NONDETECTED) Urine Cocaine Screen (NONDETECTED) U Marijuana (THC) Screen (NONDETECTED) 05/01/19 05/01/19 Range/Units 11:25 11:25 WBC (4.5-11.0) K/mcL RBC (4.00-5.20) M/mcL Hgb (12.0-15.0) g/dL Hct (36.0-48.0) % POC Hct (36.0-48.0) % MCV (80.0-100.0) fL MCH (26.0-34.0) pg MCHC (31.0-36.0) g/dL RDW (11.5-14.5) % Plt Count (140-440) K/mcL MPV (7.4-10.4) fL Gran % (38.0-78.0) % Lymph % (Auto) (15.5-49.0) % [place] % (Auto) (1.0-12.0) % Eos % (Auto) (0.0-7.0) % Baso % (Auto) (0.0-2.0) % Gran # (1.8-8.0) K/mcL Lymph # (Auto) (1.5-4.8) K/mcL [place] # (Auto) (0.1-0.9) K/mcL Eos # (Auto) (0.0-0.7) K/mcL Baso # (Auto) (0.0-0.3) K/mcL VBG Lactic Acid (0.5-2.0) mmol/L POC Sodium (133-145) mmol/L Sodium (133-145) mmol/L POC Potassium (3.3-5.1) mmol/L Potassium (3.3-5.1) mmol/L POC Chloride (96-108) mmol/L Chloride (96-108) mmol/L Carbon Dioxide (22-30) mmol/L POC Total CO2 (22-30) mmol/L Anion Gap (8-16) POC BUN (6-20) mg/dl BUN (6-20) mg/dl Creatinine (0.6-1.1) mg/dl POC Creatinine (0.6-1.1) mg/dl GFR Calculation Glucose (70-105) mg/dL POC Glucose (70-105) mg/dL Calcium (8.6-10.4) mg/dl POC WB Ioniz Calcium (1.16-1.32) mmol/L Total Bilirubin (0.0-1.0) mg/dL AST (0-37) U/l ALT (0-40) U/l Alkaline Phosphatase (39-117) U/L Total Protein (5.9-8.4) gm/dL Albumin (3.2-5.2) gm/dL Globulin (2.2-3.7) gm/dL Albumin/Globulin Ratio (1.0-2.3) Amylase (28-100) U/L Lipase (7-60) U/L Urine Color Straw Urine Appearance Clear Urine pH 9.0 (5.0-9.0) Ur Specific [place] 1.029 (1.000-1.035) Urine Protein 100 A (NEG) mg/dL Urine Glucose (UA) 50 A (NEG) mg/dL Urine Ketones 5/tr A (NEG) mg/dL Urine Occult Blood Neg (<0.03) mg/dL Urine Nitrate Neg (NEG) Urine Bilirubin Neg (NEG) mg/dL Urine Urobilinogen Neg (NEG) mg/dL Ur Leukocyte Esterase Neg (NEG) /uL Urine RBC 2 H (0-1) /hpf Urine WBC < 1 (0-4) /hpf Ur Squamous Epith Cells 1 (0-4) /hpf Amorphous Crystals Few A (0) /hpf Urine Bacteria 0 (0) /hpf Urine Mucus Few (0) /hpf Ur Culture Indicated? No Urine Opiates Screen None detected (NONDETECTED) Ur Oxycodone Screen None detected (NONDETECTED) Urine Methadone Screen None detected (NONDETECTED) Ur Barbiturates Screen None detected (NONDETECTED) Ur Phencyclidine Scrn None detected (NONDETECTED) Ur Amphetamines Screen None detected (NONDETECTED) U Benzodiazepines Scrn None detected (NONDETECTED) Urine Cocaine Screen None detected (NONDETECTED) U Marijuana (THC) Screen Suspect positive A (NONDETECTED) - Radiology Data Radiology results reviewed: Yes I reviewed the patient's radiology results. CT scan of the abdomen shows thickening in the esophagus which is worsened since the last one done 6 weeks ago. 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 Concern for ulcer versus pancreatitis versus recurrence of pyelonephritis. Cyclic vomiting is also concern with marijuana use per previous charts. Start Nexium fluids Dilaudid and Zofran CT scan showed esophagitis. Try GI cocktail but she threw it up She continued to vomit so we gave her another dose of Zofran. This did not work so we gave her some Compazine. Start Carafate and Nexium drip She gradually improved and was able to sleep I discussed the case with Dr. Mason Crawford, general surgeon-I expressed that I thought the patient needed urgent endoscopy for possible ulcer versus esophagitis; more specifically with concern for the thickening of the distal esophagus becoming worse on CT scan. Dr. Crawford agreed to accept the patient for further care and evaluation in the hospital Disposition: Xfer As Outpt/Obs ([facility]) Condition: Fair Referrals: Janice Chen MD [Primary Care Provider] -
[2019-05-01] MEDS ORDERED: ESOMEPRAZOLE 40 MG VIAL IV SCH (09:45)
[2019-05-01] MEDS: HYDROmorphone 2 MG/ML VIAL IV PRN ×3 (09:55→15:03)
[2019-05-01 10:14] LABS: POC Blood Urea Nitrogen 18 mg/dl (6-20); POC CO2 27 mmol/L (22-30); POC Calcium, Ionized 1.14 mmol/L (1.16-1.32); POC Chloride 101 mmol/L (96-108); POC Creatinine 0.9 mg/dl (0.6-1.1); POC Glucose, Random 201 mg/dL (70-105); POC Potassium 4.4 mmol/L (3.3-5.1); POC Sodium 138 mmol/L (133-145)
[2019-05-01] MEDS ORDERED: PHENobarb/HYOSCY/ATROPINE/SCOP 1 DOSE BOTTLE PO ONE (10:41)
--- NOTE | 2019-05-01 10:43 | Cat Scan Report ---
History: Severe abdominal pain with nausea and vomiting TECHNIQUE: The patient was imaged following intravenous contrast. She was unable to drink any oral contrast. Patient was scanned from the lung bases through the symphysis pubis. Sagittal and coronal reformats were created. Radiation exposure was limited using dose reduction technology. FINDINGS: The wall of the distal thoracic esophagus is abnormally thickened and irregular. It measures up to 11 mm in thickness. This has become worse since prior CT done on 03/13/19. There is no evidence of inflammation or infiltration of the adjacent posterior mediastinum. The lung bases are clear. The liver and spleen are normal in size and homogeneous. There may be mild generalized fatty infiltration of liver. The gallbladder and bile ducts are normal. There is no mass or inflammation in the pancreas. The adrenals and kidneys are normal. The stomach and bowel pattern are normal without evidence of obstruction or inflammation. The appendix is not clearly identified, there is no evidence of appendicitis. The uterus is anteverted and appears normal. There are a few benign-appearing follicles in both ovaries. No pelvic mass is present. There is no abscess ascites or adenopathy within the abdomen or pelvis. IMPRESSION: Increased thickening of the wall of the distal thoracic esophagus. This could be due to esophagitis or esophageal neoplasm. Endoscopy is recommended. Mild generalized fatty infiltration of the liver. The abdomen and pelvis are otherwise normal. Dr. Leary was called with results Interpreted and Authenticated by: Bhupendra Henson 05/01/19
[2019-05-01] MEDS ORDERED: SUCRALFATE 1 GM/10 ML ORAL.SUSP PO ONE (10:52)
[2019-05-01] MEDS ORDERED: PROCHLORPERAZINE 10 MG/2 ML VIAL IV ONE ×2 (10:56→14:47)
[2019-05-01] MEDS ORDERED: ESOMEPRAZOLE 80 MG in 0.9 % SODIUM CHLORIDE 100 ML IV SCH ×2 (11:00→14:15)
[2019-05-01 11:01] LABS: Basophils # (Auto) 0 K/mcL (0.0-0.3); Basophils % (Auto) 0.3 % (0.0-2.0); Eosinophils # (Auto) 0.2 K/mcL (0.0-0.7); Eosinophils % (Auto) 2.3 % (0.0-7.0); Granulocytes % (Auto) 85.1 % (38.0-78.0); Hematocrit 33.9 % (36.0-48.0); Hemoglobin 11.2 g/dL (12.0-15.0); Lymphocytes # (Auto) 0.9 K/mcL (1.5-4.8); Lymphocytes % (Auto) 10.7 % (15.5-49.0); Mean Cell Volume 84.3 fL (80.0-100.0); Mean Platelet Volume 9.1 fL (7.4-10.4); Monocytes # (Auto) 0.1 K/mcL (0.1-0.9); Monocytes % (Auto) 1.6 % (1.0-12.0); Platelet Count 245 K/mcL (140-440); RBC 4.03 M/mcL (4.00-5.20); Red Cell Distribution Width 14.3 % (11.5-14.5); WBC 8.8 K/mcL (4.5-11.0)
[2019-05-01] MEDS ORDERED: 0.9 % SODIUM CHLORIDE 1,000 ML IV ONE (11:12)
[2019-05-01 11:30] LABS: ALT/SGPT 18 U/l (0-40); AST/SGOT 20 U/l (0-37); Albumin 4.2 gm/dL (3.2-5.2); Albumin/Globulin Ratio 1.3 (1.0-2.3); Alkaline Phosphatase 87 U/L (39-117); Amylase 43 U/L (28-100); Bilirubin,Total 0.3 mg/dL (0.0-1.0); Blood Urea Nitrogen 18 mg/dl (6-20); Calcium 9.8 mg/dl (8.6-10.4); Carbon Dioxide 27 mmol/L (22-30); Chloride 97 mmol/L (96-108); Globulin 3.2 gm/dL (2.2-3.7); Glomerular Filtration Rate 67; Glucose 199 mg/dL (70-105)
[2019-05-01 12:07] LABS: Appearance,Urine CLEAR; Bacteria,Urine 0 /hpf (0); Bilirubin,Urine NEG (NEG); Color,Urine STRAW; Culture Indicated,Urine NO; Glucose,Urine (UA) 50 mg/dL (NEG); Ketones,Urine 5/TR mg/dL (NEG); Leukocyte Esterase,Urine NEG /uL (NEG); Mucus,Urine FEW /hpf (0); Nitrate,Urine NEG (NEG); Protein,Urine 100 mg/dL (NEG); Specific Gravity,Urine 1.029 (1.000-1.035); Urine Amorphous Crystals FEW /hpf (0); Urine Blood NEG mg/dL (<0.03); Urine RBC 2 /hpf (0-1); Urine Squamous Epithelial Cell 1 /hpf (0-4); Urine WBC < 1 /hpf (0-4); Urobilinogen,Urine NEG (NEG)
[2019-05-01] MEDS ORDERED: 0.9 % SODIUM CHLORIDE 1,000 ML IV SCH (12:15)
[2019-05-01 12:17] LABS: Amphetamine Screen,Urine NONE DETECTED (NONDETECTED); Barbiturate Screen,Urine NONE DETECTED (NONDETECTED); Benzodiazepines Screen,Urine NONE DETECTED (NONDETECTED); Cannabinoid Screen,Urine SUSPECT POSITIVE (NONDETECTED); Cocaine Screen,Urine NONE DETECTED (NONDETECTED); Opiate Screen,Urine NONE DETECTED (NONDETECTED); Oxycodone, Urine Screen NONE DETECTED (NONDETECTED); Phencyclidine Screen,Urine NONE DETECTED (NONDETECTED)
[2019-05-01] MEDS ORDERED: PROMETHAZINE 25 MG/ML VIAL IM PRN (14:10)
[2019-05-01] MEDS ORDERED: ONDANSETRON 4 MG/2 ML VIAL IV PRN (14:10)
[2019-05-01] MEDS ORDERED: ZOLPIDEM 5 MG TABLET PO PRN (15:51)
[2019-05-01] MEDS ORDERED: HYDROmorphone 2 MG/ML VIAL IV PRN (15:52)
[2019-05-01] MEDS ORDERED: LORazepam 2 MG/ML VIAL IV PRN (15:57)
[2019-05-01] MEDS: PROMETHAZINE 25 MG/ML VIAL IV PRN ×2 (16:03→20:59)
[2019-05-01] MEDS ORDERED: CYCLOBENZAPRINE 10 MG TABLET PO PRN (16:03)
--- NOTE | 2019-05-01 16:07 | General Surg History&Physical ---
History of Present Illness Patient information: Note initiated : 05/01/19 at 4:04 pm Service Date, if different from initiated Date: [] Patient: Alexsandra Stewart a 48 y/o F admitted on 05/01/19 for Abd Pain, Nausea. Chief Complaint: [] HPI: Ms. Stewart is a 48 year old F admitted for treatment of recurrent nausea with vomiting and upper abdominal pain. The patient states that she has had difficulty eating since 3 PM yesterday. She had nausea and vomiting all night. She had pain across her upper abdomen with associated bloating. Most of her pain was epigastric. She states that she is hungry but cannot keep any food down. She has had similar problems in the past and was admitted here in March of this year. She has a known history of eosinophilic esophagitis and has been treated for that for at least 3 years. Because of patient's diabetes and her inability to keep any food down, and the potential for dehydration and kidney failure. She is admitted for treatment. Review of Systems - Constitutional fatigue, frequent falls, headache(s), malaise, weakness, weight gain - EENT Nose, mouth and throat: abnormal hearing, dizziness, headache(s), neck pain, vertigo - Cardiovascular dyspnea on exertion, lightheadedness, palpatations, syncope, no chest pain with activity - Respiratory dyspnea on exertion, no wheezing, no snoring, no pain on inspirtation - Gastrointestinal abdominal pain, bloating, cramping, dyspepsia, dysphagia, heartburn, nausea, vomiting - Genitourinary Genitourinary: dysuria, nocturia, urinary frequency, urinary hesitancy, urinary incontinence - Musculoskeletal abnormal gait, arthralgias, back pain, joint swelling, muscle cramps, myalgias, neck pain, numbness, stiffness, tingling - Integumentary no new lesions, no pruritus, no rash - Neurological abnormal hearing, disequilibrium, frequent falls, memory loss, syncope, weakness - Psychiatric abnormal sleep pattern, anxiety, depression, mood swings - Endocrine fatigue - Hematologic/Lymphatic no easy bleeding, no easy bruising, no lymphadenopathy - Allergic/Immunologic no tongue swelling, no throat swelling, no uticaria, no wheezing, no lip swelling Past History Past medical history: Diabetes mellitus, uncontrolled. Peripheral neuropathy related to diabetes. Hypertension. Eosinophilic esophagitis. Anxiety with depression Past surgical history: 2 Tubal ligation Past family history: Asthma. Heart disease, type Undefined Past social history: Former smoker Medications and Allergies Home Medications Medication Instructions Recorded Confirmed Type Insulin Detemir [Levemir] 12 unit SQ QAM 02/28/18 03/14/19 History Zolpidem [Ambien] 10 mg PO HSP PRN 02/28/18 05/01/19 History Gabapentin [Neurontin] 300 mg PO TID #45 cap 03/24/18 05/01/19 Rx traMADol [Ultram] 50 - 100 mg PO Q4-6HP PRN #30 tab 04/23/18 05/01/19 Rx amitriptyline 10 mg tablet 20 mg PO QHS 12/30/18 05/01/19 History ascorbic acid (vitamin C) 250 mg 250 mg PO DAILY tab 12/30/18 03/14/19 History tablet blood sugar diagnostic strips See Dose Instructions .ROUTE 12/30/18 05/01/19 History .MEDSUPPLY #10 each blood-glucose meter See Dose Instructions .ROUTE 12/30/18 05/01/19 History .MEDSUPPLY #1 each ferrous sulfate 325 mg (65 mg 650 mg PO TID tab 12/30/18 05/01/19 History iron) tablet simvastatin 10 mg tablet 10 mg PO QPM 12/30/18 05/01/19 History vitamin B complex tablet 1 tab PO QDAY 12/30/18 03/14/19 History Insulin Glargine, Human [Lantus] 20 unit SQ HS 03/13/19 05/01/19 History Levofloxacin [Levaquin] 500 mg PO DAILY #5 tab 03/14/19 05/01/19 Rx Ondansetron [Zofran ODT] 4 mg SL Q4-6HP PRN #10 tab 03/14/19 05/01/19 Rx Pantoprazole [Protonix] 40 mg PO QAMAC #42 tab 03/14/19 05/01/19 Rx Allergies Allergy/AdvReac Type Severity Reaction Status Date / Time bee venom protein (honey bee) Allergy Intermediate Swelling Verified 05/01/19 09:13 pregabalin [From Lyrica] Allergy Mild Hives Verified 05/01/19 09:13 morphine AdvReac Mild Hallucinati Verified 05/01/19 09:13 ng Penicillins [PENICILLINS] AdvReac Mild Vomiting Verified 05/01/19 09:13 Exam Temp Pulse Resp BP Pulse Ox 97 F 100 H 20 169/90 97 05/01/19 15:51 05/01/19 15:19 05/01/19 15:51 05/01/19 15:51 05/01/19 15:51 - General physical appearance well developed, well nourished, no distress, moderate distress, moderate pain, obese - Eyes PERRL, normal ocular movement. negative: icteric - ENT normal pinna, normal nares, normal mucosa, no congestion, decreased hearing - Head Head exam IM: Present: atraumatic, normocephalic - Neck no masses, no bruits, trachea midline, no lymphadenopathy, no venous distension - Cardiovascular Cardiovascular exam IM: Present: normal rate and rhythm, +S1, +S2. Absent: JVD, RRR, tachycardia - Respiratory normal expansion, normal respiratory effort, clear to auscultation - Abdomen Abdomen: Present: soft, tender (tenderness to palpation in the upper abdomen and hypogastric area), bowel sounds (. Good active bowel sounds) Hernia: Present: none - Genitourinary Present: normal external genitalia - Integumentary Present: no rash, no growths, no abnormal pigmentation - Neurologic Present: normal coordination, normal sensation, other (, hyperesthesia of lower extremity, including she likes) - Musculoskeletal Present: normal gait, normal posture - Psychiatric Present: oriented to time, oriented to person, oriented to place, speech is normal, memory intact Assessment and Plan (1) Intractable nausea and vomiting IV hydration. IV antiemetics. PPI therapy, IV. Metoclopramide every 6 hours IV Status: Acute (2) Chronic depression Continue home medications when able to tolerate by mouth Status: Chronic (3) Diabetes mellitus with neurologic complication, with long-term current use of insulin Every 6 hours Accu-Cheks with sliding scale coverage Status: Chronic Qualifiers: Diabetes mellitus type: type 2 Diabetes mellitus complication detail: with unspecified neuropathy Qualified Code(s): E11.40 - Type 2 diabetes mellitus with diabetic neuropathy, unspecified; Z79.4 - exterminator termite (current) use of insulin (4) Diabetic peripheral neuropathy Status: Chronic (5) HTN (hypertension) Resume home meds when available or give supplemental IV medications for control Status: Chronic (6) Peripheral neuropathic pain Continue home medications and supplement as needed Status: Chronic
[2019-05-01] MEDS: 0.9 % SODIUM CHLORIDE 1,000 ML IV SCH ×2 (16:24→22:29)
[2019-05-01] MEDS: SUCRALFATE 1 GM/10 ML ORAL.SUSP PO SCH ×2 (18:28→23:19)
[2019-05-01] MEDS: METOCLOPRAMIDE 10 MG/2 ML VIAL IV SCH ×2 (18:28→23:19)
[2019-05-01] MEDS: ESOMEPRAZOLE 80 MG in 0.9 % SODIUM CHLORIDE 100 ML IV SCH (20:43)
[2019-05-01] MEDS: AMITRIPTYLINE 10 MG TABLET PO SCH (20:43)
[2019-05-01] MEDS: GABAPENTIN 300 MG CAPSULE PO SCH (20:43)
[2019-05-01] MEDS: 0.9 % SODIUM CHLORIDE 10 ML SYRINGE IV SCH (20:54)
[2019-05-01] MEDS: INSULIN LISPRO 1 UNIT/0.01 ML UNIT SQ SCH (23:25)
[2019-05-02] MEDS: 0.9 % SODIUM CHLORIDE 1,000 ML IV SCH ×2 (05:13→12:16)
[2019-05-02] MEDS: METOCLOPRAMIDE 10 MG/2 ML VIAL IV SCH ×3 (05:26→17:29)
[2019-05-02] MEDS: SUCRALFATE 1 GM/10 ML ORAL.SUSP PO SCH ×4 (05:26→23:52)
[2019-05-02] MEDS: INSULIN LISPRO 1 UNIT/0.01 ML UNIT SQ SCH ×4 (05:27→23:49)
[2019-05-02] MEDS: 0.9 % SODIUM CHLORIDE 10 ML SYRINGE IV SCH ×3 (05:31→20:39)
[2019-05-02] MEDS: ESOMEPRAZOLE 80 MG in 0.9 % SODIUM CHLORIDE 100 ML IV SCH ×2 (07:26→17:30)
[2019-05-02] MEDS: ENOXAPARIN 40 MG/0.4 ML SYRINGE SQ SCH (08:31)
[2019-05-02] MEDS: GABAPENTIN 300 MG CAPSULE PO SCH ×3 (08:31→20:38)
--- NOTE | 2019-05-02 10:05 | General Surgery Progress Note ---
Subjective Patient reports: feels better, pain is less, tolerating liquids well, flatus, bowel movement, afebrile Narrative: Note initiated : 05/02/19 at 10:02 am Service Date, if different from initiated Date: [] Patient: Alexsandra Stewart 48 y/o F admitted on 05/01/19 for Abd Pain, Nausea. Chief Complaint: [] Patient is doing much better. She has not had vomiting since shortly after admission. Her nausea is significantly improved. She is having flatus and was tolerating clear liquids. Her upper abdominal pain is significantly improved. Objective Temp Pulse Resp BP Pulse Ox 98.8 F 90 20 135/75 97 05/02/19 06:45 05/02/19 04:00 05/02/19 06:45 05/02/19 06:45 05/02/19 06:45 - Additional Data Intake & Output - Last 24 hours: Intake & Output 04/30/19 05/01/19 05/02/19 05/03/19 05:59 05:59 05:59 05:59 Intake Total 6743 100 Output Total 1350 500 Balance 5393 -400 Weight 230 lb - General physical appearance well nourished, no distress, moderate pain - Eyes PERRL, normal ocular movement - ENT normal pinna, normal nares, normal mucosa, no hearing loss, no congestion - Neck no masses, no bruits, trachea midline, no lymphadenopathy, no venous distension - Respiratory normal expansion, normal respiratory effort, clear to auscultation - Cardiovascular Cardiovascular exam: Present: normal rate and rhythm, RRR, +S1, +S2. Absent: JVD, tachycardia - Abdomen tender (minimal epigastric tenderness; no tenderness in upper quadrants; good active bowel sounds; S, abdominal distention) - Integumentary no rash, no growths, no abnormal pigmentation - Neurologic normal coordination, normal sensation - Musculoskeletal normal gait, normal posture - Psychiatric oriented to time, oriented to person, oriented to place, speech is normal, memory intact - Labs 05/01/19 10:02 05/01/19 10:02 Diabetes panel 05/01/19 Range/Units 10:02 Sodium 137 (133-145) mmol/L Potassium 4.3 (3.3-5.1) mmol/L Chloride 97 (96-108) mmol/L Carbon Dioxide 27 (22-30) mmol/L BUN 18 (6-20) mg/dl Creatinine 1.0 (0.6-1.1) mg/dl Glucose 199 H (70-105) mg/dL Calcium 9.8 (8.6-10.4) mg/dl AST 20 (0-37) U/l ALT 18 (0-40) U/l Alkaline Phosphatase 87 (39-117) U/L Total Protein 7.4 (5.9-8.4) gm/dL Albumin 4.2 (3.2-5.2) gm/dL Calcium panel 05/01/19 Range/Units 10:02 Calcium 9.8 (8.6-10.4) mg/dl Albumin 4.2 (3.2-5.2) gm/dL Pituitary panel 05/01/19 Range/Units 10:02 Sodium 137 (133-145) mmol/L Potassium 4.3 (3.3-5.1) mmol/L Chloride 97 (96-108) mmol/L Carbon Dioxide 27 (22-30) mmol/L BUN 18 (6-20) mg/dl Creatinine 1.0 (0.6-1.1) mg/dl Glucose 199 H (70-105) mg/dL Calcium 9.8 (8.6-10.4) mg/dl Adrenal panel 05/01/19 Range/Units 10:02 Sodium 137 (133-145) mmol/L Potassium 4.3 (3.3-5.1) mmol/L Chloride 97 (96-108) mmol/L Carbon Dioxide 27 (22-30) mmol/L BUN 18 (6-20) mg/dl Creatinine 1.0 (0.6-1.1) mg/dl Glucose 199 H (70-105) mg/dL Calcium 9.8 (8.6-10.4) mg/dl Total Bilirubin 0.3 (0.0-1.0) mg/dL AST 20 (0-37) U/l ALT 18 (0-40) U/l Alkaline Phosphatase 87 (39-117) U/L Total Protein 7.4 (5.9-8.4) gm/dL Albumin 4.2 (3.2-5.2) gm/dL Assessment and Plan (1) Intractable nausea and vomiting Status: Chronic Assessment and plan: Patient is significantly improved. We'll continue clear liquids until tomorrow after which her diet will be advanced and hopefully she can be switched to oral medication prior to discharge. Current Visit: Yes (2) Chronic depression Status: Chronic Assessment and plan: Resume all home medications Current Visit: No (3) Diabetes mellitus with neurologic complication, with long-term current use of insulin Status: Chronic Current Visit: No (4) Diabetic peripheral neuropathy Status: Chronic Assessment and plan: Resume all oral medications Current Visit: No (5) HTN (hypertension) Status: Chronic Current Visit: No (6) Peripheral neuropathic pain Status: Chronic Current Visit: No - Time Spent With Patient Total time spent is greater than 50% in coordination of care (as documented) at patient's floor/unit and/or counseling patient:
[2019-05-02] MEDS: HYDROcodone/APAP 5/325MG TABLET PO PRN ×2 (12:16→20:38)
[2019-05-02] MEDS ORDERED: ONDANSETRON 4 MG ODT TABLET SL PRN (20:15)
[2019-05-02] MEDS: METOCLOPRAMIDE 10 MG TABLET PO SCH (20:38)
[2019-05-02] MEDS: AMITRIPTYLINE 10 MG TABLET PO SCH (20:38)
[2019-05-03] MEDS: 0.9 % SODIUM CHLORIDE 1,000 ML IV SCH
[2019-05-03] MEDS: HYDROcodone/APAP 5/325MG TABLET PO PRN ×3 (03:36→12:56)
[2019-05-03] MEDS: METOCLOPRAMIDE 10 MG TABLET PO SCH ×2 (03:37→08:40)
[2019-05-03] MEDS: SUCRALFATE 1 GM/10 ML ORAL.SUSP PO SCH ×2 (05:39→11:16)
[2019-05-03] MEDS: 0.9 % SODIUM CHLORIDE 10 ML SYRINGE IV SCH (05:39)
[2019-05-03] MEDS: INSULIN LISPRO 1 UNIT/0.01 ML UNIT SQ SCH ×2 (05:44→11:15)
[2019-05-03] MEDS ORDERED: PANTOPRAZOLE 40 MG TABLET PO SCH (07:30)
[2019-05-03] MEDS: GABAPENTIN 300 MG CAPSULE PO SCH (08:40)
[2019-05-03] MEDS: ENOXAPARIN 40 MG/0.4 ML SYRINGE SQ SCH (08:40)
[2019-05-03] MEDS ORDERED: PARoxetine 20 MG TABLET PO SCH (09:00)
--- NOTE | 2019-05-03 13:23 | Discharge Summary ---
Providers - Providers Patient information: Note initiated : 05/03/19 at 1:20 pm Service Date, if different from initiated Date: [] Patient: Alexsandra Stewart 48 y/o F admitted on 05/01/19 for Abd Pain, Nausea. Chief Complaint: [] Date of admission: 05/01/19 Discharge date: 05/03/19 Attending physician: Enzo Crawford Primary care physician: Janice Chen Hospitalization Hospital course: 48-year-old female admitted for treatment of recurrent nausea, vomiting and upper abdominal pain. She states that she could not keep any food down. She was admitted to this facility in March of this year with similar complaints. She has a history of eosinophilic esophagitis which has been treated for 3 years. The patient was unable to eat and drink so she was admitted because of her diabetes and potential for dehydration, and kidneys. She was treated with IV hydration, antiemetics, PPI therapy and metoclopramide IV. Her diabetes was controlled with Accu-Cheks every 6 hours and sliding scale with Humalog. She improved after about 24 hours. Her diet was gradually advanced and she is now tolerating regular diet. Since the patient had upper endoscopy in October with known esophagitis. I don't think it is necessary to repeat endoscopic therapy at this time. She can follow-up with her GI doctor as needed. Discharge diagnosis: recurrent nausea and vomiting Secondary discharge diagnosis: Eosinophilic esophagitis. Gastroesophageal reflux. Diabetes mellitus. Hypertension. Chronic depression. Chronic peripheral neuropathic pain Reason for admission: recurrent nausea and vomiting Procedures: None Pertinent studies/significant findings: CT of abdomen and pelvis with contrast Complications: None Exam Temp Pulse Resp BP Pulse Ox 97.7 F 88 20 149/84 98 05/03/19 13:19 05/03/19 13:19 05/03/19 13:19 05/03/19 13:19 05/03/19 13:19 - General physical appearance well developed, well nourished, no distress - Eyes PERRL, normal ocular movement - ENT normal pinna, normal nares, normal mucosa, no hearing loss, no congestion - Head Head exam IM: Present: atraumatic, normocephalic - Neck no masses, no bruits, trachea midline, no lymphadenopathy, no venous distension - Cardiovascular Cardiovascular exam IM: Present: normal rate and rhythm - Respiratory normal expansion, normal respiratory effort, clear to percussion, clear to auscultation - Abdomen Abdomen: Present: soft, tender (minimal tenderness in the epigastrium, otherwise normal exam), bowel sounds Hernia: Present: none - Genitourinary Present: normal external genitalia - Rectum Rectum: Present: normal sphincter tone, no hemorrhoids, no tenderness, no mass es, no bleeding - Integumentary Present: no rash, no growths, no abnormal pigmentation - Neurologic Present: normal coordination, other (. Hyperesthesia of her lower extremities below the knee) - Musculoskeletal Present: normal gait, normal posture - Psychiatric Present: oriented to time, oriented to person, oriented to place, speech is normal, memory intact Discharge Plan - Patient/Caregiver Discharge Instructions Activity: increase activity as tolerated Diet: Regular Diet Additional Instructions: Follow-up with primary care provider as needed Prescriptions: Ondansetron [Zofran ODT] 4 mg SL Q4HP PRN #30 tab PRN Reason: Nausea And Vomiting Pantoprazole [Protonix] 40 mg PO BIDAC #60 tab - Follow up Plan Follow up with: Janice Chen MD [Primary Care Provider] - Disposition: Home, Self-Care Prognosis: Good Rehab Potential: Good I certify that the patient requires SNF services.: No Overall status at discharge: patient is progressing back to baseline Pending Studies Resuscitation Status Full Code Diet Regular Diet Start Sun May 03 1234 Hydrocodone Bitart/Acetaminophen ([place] 5/325mg) 1 tab PO Q4HP PRN PRN Reason: PAIN LEVEL 3-6 Last Admin: 05/03/19 12:56 Dose: 1 tab Documented by: [email or web address] Admin: 05/03/19 07:29 Dose: 1 tab Documented by: [email or web address] Admin: 05/03/19 03:36 Dose: 1 tab Documented by: Admin: 05/02/19 20:38 Dose: 1 tab Documented by: Admin: 05/02/19 12:16 Dose: 1 tab Documented by: [email or web address] Amitriptyline HCl (Elavil) 20 mg PO QHS [facility] Last Admin: 05/02/19 20:38 Dose: 20 mg Documented by: Admin: 05/01/19 20:43 Dose: 20 mg Documented by: EDDI Cyclobenzaprine HCl (Flexeril) 10 mg PO TIDP PRN PRN Reason: Muscle Spasm Last Admin: 05/03/19 03:37 Dose: 10 mg Documented by: TIANA Diagnostic Test (Pha) (Accu-Chek) 1 each FS Q6 [facility]OMER; Protocol Last Admin: 05/03/19 11:15 Dose: 1 each Documented by: Admin: 05/03/19 05:38 Dose: 1 each Documented by: Admin: 05/02/19 23:48 Dose: 1 each Documented by: Admin: 05/02/19 16:55 Dose: 1 each Documented by: SHAUNASarah Admin: 05/02/19 11:35 Dose: 1 each [facility] Admin: 05/02/19 05:14 Dose: 1 each Documented by: Admin: 05/01/19 23:21 Dose: 1 each Documented by: EDDI Enoxaparin Sodium (Lovenox) 40 mg SQ DAILY [facility] Last Admin: 05/03/19 08:40 Dose: 40 mg Documented [facility]: [facility] Admin: 05/02/19 08:31 Dose: 40 mg Documented by: [facility] Gabapentin (Neurontin) 300 mg PO TID [facility] Last Admin: 05/03/19 08:40 Dose: 300 mg Documented [facility]: [facility] Admin: 05/02/19 20:38 Dose: 300 mg Documented by: Admin: 05/02/19 14:06 Dose: 300 mg Documented by: [facility] Admin: 05/02/19 08:31 Dose: 300 mg Documented by: [facility] Admin: 05/01/19 20:43 Dose: 300 mg Documented by: EDDI Insulin Human Lispro (Humalog) 0 unit SQ Q6 [facility]; Protocol Last Admin: 05/03/19 11:15 Dose: 6 unit Documented [facility]: [facility] Admin: 05/03/19 05:44 Dose: 2 unit Documented by: Admin: 05/02/19 23:49 Dose: Not Given Documented by: Admin: 05/02/19 16:56 Dose: Not Given Documented by: [facility] Admin: 05/02/19 11:39 Dose: 6 unit [facility]ed [facility]: [facility] Admin: 05/02/19 05:27 Dose: 2 unit Documented by: Admin: 05/01/19 23:25 Dose: 2 unit Documented by: EDDI Metoclopramide HCl (Reglan) 10 mg PO Q6H [facility] Last Admin: 05/03/19 08:40 Dose: 10 mg Documented by: SHAUNASarah Admin: 05/03/19 03:37 Dose: 10 mg Documented by: Admin: 05/02/19 20:38 Dose: 10 mg Documented by: TIANA Pantoprazole Sodium (Protonix) 40 mg PO BIDAC [facility] Last Admin: 05/03/19 07:01 Dose: 40 mg Documented [facility]: [facility] Paroxetine HCl (Paxil) 20 mg PO DAILY [facility] Last Admin: 05/03/19 08:40 Dose: 20 mg Documented by: DES Sodium Chloride (Saline Flush) 10 ml IV Q8 [facility] Last Admin: 05/03/19 05:39 Dose: 10 ml Documented by: Admin: 05/02/19 20:39 Dose: 10 ml Documented by: Admin: 05/02/19 14:06 Dose: 10 ml Documented by: SHAUNASarah Admin: 05/02/19 05:31 Dose: Not Given Documented by: Admin: 05/01/19 20:54 Dose: Not Given Documented by: EDDI Sucralfate (Carafate) 1 gm PO Q6 [facility] Last Admin: 05/03/19 11:16 Dose: 1 gm Documented by: [facility] Admin: 05/03/19 05:39 Dose: 1 gm Documented by: Admin: 05/02/19 23:52 Dose: 1 gm Documented by: Admin: 05/02/19 17:29 Dose: 1 gm Documented by: [facility] Admin: 05/02/19 11:32 Dose: 1 gm Documented by: [facility] Admin: 05/02/19 05:26 Dose: 1 gm Documented by: Admin: 05/01/19 23:19 Dose: 1 gm Documented by: Admin: 05/01/19 18:28 Dose: 1 gm Documented by: [email or web address] Zolpidem Tartrate (Ambien) 10 mg PO HSP PRN PRN Reason: Sleep Last Admin: 05/02/19 20:38 Dose: 10 mg Documented by: TIANA Shift Summary 05/03/19 03:06 Shift Summary by Hardeep Clemente Patient is alert and oriented times four. Patient complained of no nausea/vomiting. complained of headache, Hydrocodone was given. IV to the left. Patient is not on IV medications no more. IV medications changed to oral medications. Accucheck 118. standby assist to the bathroom, Pleasant and c ooperative. uses call light appropriately and able to make needs known. Initialized on 05/03/19 03:06 - END OF NOTE
[2019-05-07 06:16] LABS: Cannabinoid Confirmation POSITIVE (N)
== END 2019-05-03 14:25 | disposition home or self-care (01) ==
LOC: MEDSUR 09:12 → ED 09:12 → MEDSUR 15:19
PROVIDERS: ADMIT Family Medicine Adult Medicine; ATTEND Family Medicine Adult Medicine

== ENCOUNTER 2021-07-17 12:02 | Observation (INO) ==
[2021-07-17] MEDS ORDERED: KETOROLAC 15 MG/ML VIAL IV ONE (12:49)
[2021-07-17] MEDS ORDERED: METOCLOPRAMIDE 10 MG/2 ML VIAL IV ONE ×2 (12:49→14:06)
[2021-07-17] MEDS ORDERED: LACTATED RINGERS 1,000 ML IV ONE ×3 (12:49→18:17)
[2021-07-17] MEDS ORDERED: diphenhydrAMINE 50 MG/ML VIAL IV ONE (12:49)
[2021-07-17 13:23] LABS: Basophils # (Auto) 0.06 K/mcL (0.00-0.30); Basophils % (Auto) 0.4 % (0.0-2.0); Eosinophils # (Auto) 0 K/mcL (0.00-0.70); Eosinophils % (Auto) 0 % (0.0-7.0); Hematocrit 34.2 % (34.1-44.9); Hemoglobin 12.2 g/dL (11.2-15.7); Lymphocytes # (Auto) 0.81 K/mcL (1.50-4.80); Mean Cell Volume 89.5 fL (80.0-100.0); Mean Corpuscular HGB Conc 35.7 g/dL (31.0-36.0); Mean Platelet Volume 10.8 fL (7.4-10.4); Monocytes # (Auto) 0.18 K/mcL (0.10-0.90); Monocytes % (Auto) 1.3 % (1.0-12.0); Neutrophils % (Auto) 92.3 % (38.0-78.0); Platelet Count 239 K/mcL (140-440); RBC 3.82 M/mcL (3.59-5.38); Red Cell Distribution Width 12.8 % (11.5-14.5); WBC 13.5 K/mcL (4.5-11.0)
[2021-07-17 13:31] LABS: ALT/SGPT 16 U/L (<40); AST/SGOT 21 U/L (<32); Albumin 4.5 gm/dL (3.2-5.2); Albumin/Globulin Ratio 1.5 (1.0-2.3); Alkaline Phosphatase 62 U/L (39-117); Bilirubin,Total 0.6 mg/dL (0.1-1.0); Blood Urea Nitrogen 32 mg/dL (6-20); Calcium 9.4 mg/dL (8.6-10.4); Carbon Dioxide 20 mmol/L (22-30); Chloride 96 mmol/L (96-108); Globulin 3.1 gm/dL (2.2-3.7); Glomerular Filtration Rate 37; Glucose 196 mg/dL (70-105)
[2021-07-17] MEDS ORDERED: HYOSCYAMINE SULFATE 0.125 MG TABLET SL ONE (14:06)
[2021-07-17] MEDS ORDERED: PHENobarb/HYOSCY/ATROPINE/SCOP 1 DOSE BOTTLE PO ONE (14:06)
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
[2021-07-17] MEDS ORDERED: INSULIN REGULAR, HUMAN 1 UNIT/0.01 ML UNIT SQ ONE (15:30)
[2021-07-17 16:31] LABS: Appearance,Urine CLEAR (Clear); Bilirubin,Urine Negative (Negative); Color,Urine YELLOW; Culture Indicated,Urine No; Glucose,Urine (UA) >=500 mg/dL (Negative); Ketones,Urine 80 mg/dL (Negative); Leukocyte Esterase,Urine Negative /uL (Negative); Nitrate,Urine Negative (Negative); Protein,Urine 100 mg/dL (Negative); Specific Gravity,Urine 1.017 (1.000-1.035); Urine Blood 0.03 mg/dL (Negative); Urine RBC 1 /hpf (0-3); Urine Squamous Epithelial Cell 1 /hpf (0-4); Urine WBC 1 /hpf (0-4); Urobilinogen,Urine Negative
--- NOTE | 2021-07-17 16:59 | Cat Scan Report ---
History: Acute kidney injury, abdominal pain with nausea and vomiting TECHNIQUE: The abdomen was imaged without contrast at 2.5 mm intervals from the diaphragm through the symphysis pubis. Sagittal and coronal reformats are created. Radiation exposure was limited using dose reduction technology. FINDINGS: The lung bases are clear. The heart is normal in size. The distal esophagus is mildly distended with fluid. There is also a moderate amount of fluid in the stomach. Evaluation of the abdominal organs without contrast is somewhat limited. No abnormality is seen within the liver, gallbladder spleen or pancreas. The adrenals and kidneys are normal in size and symmetric. There is no evidence of kidney stone, hydronephrosis, mass effect, cyst or scarring in either kidney. Both ureters are decompressed. Urinary bladder is also decompressed. The uterus is anteverted and normal in size. The ovaries are difficult to evaluate since they blend in with the adjacent loops of unopacified small bowel. The bowel pattern is normal without evidence of inflammation or obstruction. The appendix is noninflamed. There are no diverticula. No mass, ascites or adenopathy are present within the abdomen or pelvis. Comparison with the prior CT done on 10/06/20 shows little change. IMPRESSION: Fluid-filled mildly distended esophagus. This may be related to nausea. Normal abdomen and pelvis Dr. Diaz was called with the report Interpreted and Authenticated by: Bhupendra Henson 07/17/21
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
[2021-07-17] MEDS ORDERED: 0.9 % SODIUM CHLORIDE 1,000 ML IV ONE (18:13)
[2021-07-17] MEDS ORDERED: ONDANSETRON 4 MG/2 ML VIAL IV PRN (19:47)
[2021-07-17] MEDS ORDERED: DEXTROSE 50% 50 ML VIAL IV PRN (19:47)
[2021-07-17] MEDS ORDERED: ACETAMINOPHEN 325 MG TABLET PO PRN (19:47)
[2021-07-17] MEDS ORDERED: METOCLOPRAMIDE 10 MG/2 ML VIAL IV PRN (19:47)
[2021-07-17] MEDS ORDERED: DEXTROSE 31 GM ORAL.SUSP PO PRN (19:47)
[2021-07-17] MEDS ORDERED: PROMETHAZINE 25 MG/ML VIAL IV PRN (19:47)
[2021-07-17] MEDS: 0.9 % SODIUM CHLORIDE 1,000 ML IV SCH (20:10)
[2021-07-17] MEDS ORDERED: SENNOSIDES 1 TABLET PO SCH (21:00)
[2021-07-17] MEDS: HEPARIN 5,000 UNIT/ML VIAL SQ SCH (21:06)
[2021-07-17] MEDS: DOCUSATE SODIUM 100 MG CAPSULE PO SCH (21:06)
[2021-07-17] MEDS: INSULIN LISPRO 1 UNIT/0.01 ML UNIT SQ SCH (21:07)
[2021-07-17] MEDS ORDERED: oxyCODONE/APAP 10/325MG TABLET PO PRN (21:09)
[2021-07-17] MEDS ORDERED: ZOLPIDEM 5 MG TABLET PO PRN ×2 (21:11→21:42)
[2021-07-17] MEDS: 0.9 % SODIUM CHLORIDE 10 ML SYRINGE IV SCH (21:15)
[2021-07-17] MEDS: PANTOPRAZOLE 40 MG TABLET PO SCH (21:59)
[2021-07-18] MEDS: 0.9 % SODIUM CHLORIDE 10 ML SYRINGE IV SCH (05:06)
[2021-07-18] MEDS: 0.9 % SODIUM CHLORIDE 1,000 ML IV SCH (06:17)
[2021-07-18] MEDS: PANTOPRAZOLE 40 MG TABLET PO SCH (07:19)
[2021-07-18] MEDS: INSULIN LISPRO 1 UNIT/0.01 ML UNIT SQ SCH ×2 (07:27→11:38)
[2021-07-18 07:43] LABS: Basophils % (Auto) 0.3 % (0.0-2.0); Eosinophils % (Auto) 0.4 % (0.0-7.0); Hematocrit 31.8 % (34.1-44.9); Hemoglobin 10.3 g/dL (11.2-15.7); Lymphocytes % (Auto) 14.3 % (15.5-49.0); Mean Cell Volume 94.1 fL (80.0-100.0); Mean Corpuscular HGB Conc 32.4 g/dL (31.0-36.0); Mean Platelet Volume 10.9 fL (7.4-10.4); Monocytes % (Auto) 5.8 % (1.0-12.0); Neutrophils % (Auto) 79.2 % (38.0-78.0); Platelet Count 204 K/mcL (140-440); RBC 3.38 M/mcL (3.59-5.38); Red Cell Distribution Width 12.9 % (11.5-14.5); WBC 10.4 K/mcL (4.5-11.0)
--- NOTE | 2021-07-18 07:43 | XRay Report ---
HISTORY: Nausea and vomiting FINDINGS: The lungs are clear and well expanded. The heart size, mediastinum, som and pleura are normal. No free intra-abdominal air is present. Normal volume of air is seen within the stomach. IMPRESSION: Normal chest Interpreted and Authenticated by: Bhupendra Henson 07/18/21
[2021-07-18 07:44] LABS: Basophils # (Auto) 0.03 K/mcL (0.00-0.30); Eosinophils # (Auto) 0.04 K/mcL (0.00-0.70); Lymphocytes # (Auto) 1.49 K/mcL (1.50-4.80)
[2021-07-18 08:18] LABS: Blood Urea Nitrogen 35 mg/dL (6-20); Calcium 8.4 mg/dL (8.6-10.4); Carbon Dioxide 20 mmol/L (22-30); Chloride 99 mmol/L (96-108); Glomerular Filtration Rate 37; Glucose 180 mg/dL (70-105)
[2021-07-18] MEDS: HEPARIN 5,000 UNIT/ML VIAL SQ SCH (08:53)
[2021-07-18] MEDS: DOCUSATE SODIUM 100 MG CAPSULE PO SCH (08:54)
[2021-07-18] MEDS ORDERED: DULoxetine 30 MG CAPSULE PO SCH (09:00)
[2021-07-18] MEDS ORDERED: VITAMIN B COMPLEX 1 CAPSULE PO SCH (09:00)
[2021-07-18] MEDS ORDERED: glipiZIDE 5 MG TABLET PO SCH (09:00)
[2021-07-18] MEDS ORDERED: FERROUS SULFATE 325 MG TABLET PO SCH (09:00)
[2021-07-18] MEDS ORDERED: CETIRIZINE 10 MG TABLET PO SCH (09:00)
[2021-07-18] MEDS ORDERED: ASPIRIN 81 MG TAB.CHEW PO SCH (09:00)
[2021-07-18] MEDS ORDERED: ATORVASTATIN 10 MG TABLET PO SCH (09:00)
[2021-07-18] MEDS ORDERED: Empagliflozin [Jardiance] 25 mg tablet PO SCH (09:00)
[2021-07-18] MEDS ORDERED: ASCORBIC ACID 500 MG TABLET PO SCH (09:00)
[2021-07-18] MEDS ORDERED: FLU VACC QS2021-22(6MOS UP)/PF 60 MCG/0.5 ML SYRINGE IM ONE (10:00)
[2021-07-18] MEDS ORDERED: PNEUMOCOCCAL 23-VAL P-SAC VAC 0.5 ML SYRINGE IM ONE (10:00)
--- NOTE | 2021-07-18 10:38 | EKG ---
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 Measurements Intervals [place] Rate: 113 P: 64 DE: 180 QRS: 47 QRSD: 76 T: -48 QT: 308 QTc: 423 Interpretive Statements SINUS TACHYCARDIA BORDERLINE T ABNORMALITIES, INFERIOR LEADS Electronically Signed On 07-18-2021 10:38:29 PDT by Leonardo Henson M.D. /[id number]
--- NOTE | 2021-07-18 10:46 | Discharge Summary ---
Discharge Provider Provider Patient information: Note initiated : 07/18/21 at 10:43 am Service Date, if different from initiated Date: [] Patient: Alexsandra Stewart 50 y/o F admitted on 07/17/21 for nausea, vomiting. Chief Complaint: [diabetic gastroparesis] History of present illness: Ms. Stewart is a 50 year old F history of type 2 diabetes mellitus insulin dependency, diabetic gastroparesis, essential hypertension, mixed dyslipidemia, chronic kidney disease stage III, presenting with 2-day history of acute onset nausea and vomiting. Last prior similar episode 1 month ago. She was in her usual state of health until yesterday when she developed acute onset of nausea and vomiting at about 20 episode of vomiting with black vomit since symptom onset. She is also committing of mild to moderate epigastric "like someone is dancing on my stomach", intermittent, partially alleviated by vomiting, abdominal pain. She also is committing of associated diarrhea. She denies any subjective fever, chills, or diaphoresis. She denies any chest pain or palpitations or shortness of breath. She denies consumption of new foods or use of any drugs. Vital signs at ED presentation significant for mild tachycardia with heart rate up to the 110s beats per minute with rest of the vital signs within normal limits. Labs significant for mild leukocytosis with WBC 13.5. Serum lactic acid pending. Serum BUN/creatinine 32 and 1.6, respectively with baseline creatinine level between 1.1 and 1.2. Glucose level 196 anion gap 20. No signs of urinary tract infections from urine analysis. Abdomen pelvis CT unremarkable no acute intra-abdominal findings. Date of admission: 07/17/21 19:47 Discharge date: 07/18/21 Primary care physician: Leonardo Beauchamp DO Consults: 07/17/21 Consult to Physician [CONS] Stat Comment: Consulting Provider: Renato Sharpe Reason For Exam: Physician to Consult Discharge Meds Discharge Medications Home Medications ascorbic acid (vitamin C) 250 mg tablet 250 mg PO DAILY tab 12/30/18 [History Confirmed 07/17/21 Last Taken 03/07/19 08:00] blood-glucose meter #1 each 12/30/18 [History Confirmed 07/03/21 Last Taken Unknown] ferrous sulfate 325 mg (65 mg iron) tablet 650 mg PO TID tab 12/30/18 [History Confirmed 07/17/21 Last Taken 03/07/19 18:00] vitamin B complex 1 tab PO QDAY 12/30/18 [History Confirmed 07/17/21 Last Taken 03/07/19] aspirin 81 mg tablet,delayed release 81 mg PO QDAY #60 tab 01/06/20 [Rx Confirmed 07/17/21 Last Taken Unknown] blood sugar diagnostic #300 each 02/08/20 [Rx Confirmed 07/03/21 Last Taken Unknown] insulin detemir U-100 100 unit/mL (3 mL) subcutaneous pen 5 unit SUB-Q .qam and 22 units qpm #15 ml 07/13/20 [Rx Confirmed 07/17/21 Last Taken Unknown] rosuvastatin 5 mg tablet 5 mg PO QDAY #90 tab 08/03/20 [Rx Confirmed 07/17/21 Last Taken Unknown] cetirizine 10 mg tablet 10 mg PO QDAY 09/14/20 [History Confirmed 07/17/21 Last Taken Unknown] lancets 33 gauge #100 ea 01/16/21 [Rx Confirmed 07/03/21 Last Taken Unknown] lisinopril 10 mg tablet 10 mg PO DAILY 90 Days #90 tab 02/15/21 [Rx Confirmed 07/17/21 Last Taken Unknown] pantoprazole 40 mg tablet,delayed release 40 mg PO BID #120 tab 02/15/21 [Rx Confirmed 07/17/21 Last Taken Unknown] promethazine 12.5 mg tablet 12.5 mg PO Q6H PRN #10 tab 02/15/21 [Rx Confirmed 07/17/21 Last Taken Unknown] zolpidem 10 mg tablet 5 mg PO QHS PRN #20 tab 02/15/21 [Rx Confirmed 07/17/21 Last Taken Unknown] empagliflozin 25 mg tablet 25 mg PO QAM #90 tab 04/06/21 [Rx Confirmed 07/17/21 Last Taken Unknown] ondansetron 4 mg PO Q8H PRN #10 tab 05/07/21 [Rx Confirmed 07/17/21 Last Taken Unknown] pen needle, diabetic 33 gauge x 1/4" #100 each 05/25/21 [Rx Confirmed 07/03/21 Last Taken Unknown] duloxetine 30 mg capsule,delayed release 30 mg PO QDAY #60 cap 05/31/21 [Rx Confirmed 07/17/21 Last Taken Unknown] glipizide 5 mg tablet 5 mg PO BID #360 tab 06/22/21 [Rx Confirmed 07/17/21 Last Taken Unknown] oxycodone-acetaminophen 10 mg-325 mg tablet 1 tab PO Q12H PRN #56 tab 06/28/21 [Rx Confirmed 07/17/21 Last Taken Unknown] linagliptin 5 mg tablet 5 mg PO QDAY #90 tab 07/03/21 [Rx Confirmed 07/17/21 Last Taken Unknown] COURSE Hospital Course Hospital course: Patient was admitted on July 17, 2021 for diabetic gastroparesis. Aggressive fluid restrictions, aggressive glycemic control by insulin therapy were implemented together with symptom control with Zofran and Reglan and Phenergan as needed for nausea vomiting. By day to hospitalizations, patient's symptoms drastically improved and reached clinical stability. As such, the decision was made to discharge patient home on day to hospitalizations. Follow-up appointment with PCP 2 weeks made for her. All questions were answered prior to patient being physically discharged. Discharge diagnosis: diabetic gastroparesis Time Spent with Patient Time attestation: Total time spent providing and/or coordinating discharge services: Patient was admitted on July 17, 2021 for diabetic gastroparesis. Aggressive fluid restrictions, aggressive glycemic control by insulin therapy were implemented together with symptom control with Zofran and Reglan and Phenergan as needed for nausea vomiting. By day to hospitalizations, patient's symptoms drastically improved and reached clinical stability. As such, the decision was made to discharge patient home on day to hospitalizations. Follow-up appointment with PCP 2 weeks made for her. All questions were answered prior to patient being physically discharged. EXAM Constitutional Vitals: Temp Pulse Resp BP Pulse Ox 36.9 C 78 20 118/77 97 07/18/21 07:58 07/18/21 07:58 07/18/21 07:58 07/18/21 07:58 07/18/21 07:58 General appearance: cooperative Head Head exam: Present atraumatic and normocephalic Eye Eye exam: Present EOMI and PERRL ENT ENT exam: Present mucous membranes moist, normal exam and normal external ear exam Neck Neck exam: Present normal inspection; Absent lymphadenopathy, tenderness and th yromegaly Respiratory Respiratory exam: Absent accessory muscle use, respiratory distress and wheezes Cardiovascular Cardiovascular exam: Present normal rate and rhythm; Absent JVD GI/Abdominal GI/Abdominal exam: Present normal bowel sounds and soft; Absent organomegaly and tenderness Extremities Exam Extremities exam: Present full ROM, normal capillary refill and normal inspection; Absent tenderness Neurological Exam Neurological exam: Present alert, CN II-XII intact and oriented X3; Absent motor sensory deficit Psychiatric Psychiatric exam: Present normal affect and normal mood; Absent anxious and depressed Skin Skin exam: Present dry and intact Discharge Data Data Completed and Pending Labs on day of discharge: Labs from last 24 hours 07/18/21 07/18/21 07/17/21 05:54 05:54 16:33 WBC 10.4 RBC 3.38 L Hgb 10.3 L Hct 31.8 L MCV 94.1 MCH 30.5 MCHC 32.4 RDW 12.9 Plt Count 204 MPV 10.9 H Neut % (Auto) 79.2 H Lymph % (Auto) 14.3 L Kendall % (Auto) 5.8 Eos % (Auto) 0.4 Baso % (Auto) 0.3 Lymph # (Auto) 1.49 L Kendall # (Auto) 0.60 Eos # (Auto) 0.04 Baso # (Auto) 0.03 Absolute Neutrophils 8.23 H VBG Lactic Acid 1.3 Sodium 132 L Potassium 3.9 Chloride 99 Carbon Dioxide 20 L Anion Gap 13.0 BUN 35 H Creatinine 1.6 H GFR Calculation 37 Glucose 180 H Calcium 8.4 L Magnesium 2.3 Total Bilirubin AST ALT Alkaline Phosphatase Total Protein Albumin Globulin Albumin/Globulin Ratio Lipase Procalcitonin TSH Urine Color Urine Appearance Urine pH Ur Specific Bowdle Urine Protein Urine Glucose (UA) Urine Ketones Urine Occult Blood Urine Nitrate Urine Bilirubin Urine Urobilinogen Ur Leukocyte Esterase Urine RBC Urine WBC Ur Squamous Epith Cells Urine Bacteria Ur Culture Indicated? 07/17/21 07/17/21 07/17/21 15:25 13:07 13:06 WBC 13.5 H RBC 3.82 Hgb 12.2 Hct 34.2 MCV 89.5 MCH 31.9 MCHC 35.7 RDW 12.8 Plt Count 239 MPV 10.8 H Neut % (Auto) 92.3 H Lymph % (Auto) 6.0 L Kendall % (Auto) 1.3 Eos % (Auto) 0 Baso % (Auto) 0.4 Lymph # (Auto) 0.81 L Kendall # (Auto) 0.18 Eos # (Auto) 0 Baso # (Auto) 0.06 Absolute Neutrophils 12.45 H VBG Lactic Acid Sodium 136 Potassium 4.3 Chloride 96 Carbon Dioxide 20 L Anion Gap 20.0 H BUN 32 H Creatinine 1.6 H GFR Calculation 37 Glucose 196 H Calcium 9.4 Magnesium Total Bilirubin 0.6 AST 21 ALT 16 Alkaline Phosphatase 62 Total Protein 7.6 Albumin 4.5 Globulin 3.1 Albumin/Globulin Ratio 1.5 Lipase 25 Procalcitonin TSH Urine Color Yellow Urine Appearance Clear Urine pH 5.0 Ur Specific Bowdle 1.017 Urine Protein 100 A Urine Glucose (UA) >=500 A Urine Ketones 80 A Urine Occult Blood 0.03 Urine Nitrate Negative Urine Bilirubin Negative Urine Urobilinogen Negative Ur Leukocyte Esterase Negative Urine RBC 1 Urine WBC 1 Ur Squamous Epith Cells 1 Urine Bacteria None Ur Culture Indicated? No 07/17/21 07/17/21 12:51 12:51 WBC RBC Hgb Hct MCV MCH MCHC RDW Plt Count MPV Neut % (Auto) Lymph % (Auto) Kendall % (Auto) Eos % (Auto) Baso % (Auto) Lymph # (Auto) Kendall # (Auto) Eos # (Auto) Baso # (Auto) Absolute Neutrophils VBG Lactic Acid Sodium Potassium Chloride Carbon Dioxide Anion Gap BUN Creatinine GFR Calculation Glucose Calcium Magnesium Total Bilirubin AST ALT Alkaline Phosphatase Total Protein Albumin Globulin Albumin/Globulin Ratio Lipase Procalcitonin 0.19 H TSH 0.42 Urine Color Urine Appearance Urine pH Ur Specific Bowdle Urine Protein Urine Glucose (UA) Urine Ketones Urine Occult Blood Urine Nitrate Urine Bilirubin Urine Urobilinogen Ur Leukocyte Esterase Urine RBC Urine WBC Ur Squamous Epith Cells Urine Bacteria Ur Culture Indicated? Discharge Plan Patient/Caregiver Discharge Instructions Activity: increase activity as tolerated Diet: Consistent Carbohydrate Instructions: Diabetic Gastroparesis (DC), Acute Nausea and Vomiting (ED) Prescriptions: Continued aspirin [Aspir-81] 81 mg tablet,delayed release (DR/EC) 81 mg PO QDAY Qty: 60 RF: 1 (DME) True Metrix Glucose Test Strip Strip See Dose Instructions applic .ROUTE .MEDSUPPLY Qty: 300 RF: 3 rosuvastatin [Crestor] 5 mg tablet 5 mg PO QDAY Qty: 90 RF: 1 Jardiance 25 mg tablet 25 mg PO QAM Qty: 90 RF: 3 (DME) Easy Comfort Pen [place] 33 gauge x 1/4" needle See Rx Instructions .ROUTE .MEDSUPPLY Qty: 100 RF: 3 glipizide 5 mg tablet 5 mg PO BID Qty: 360 RF: 1 Tradjenta 5 mg tablet 5 mg PO QDAY Qty: 90 RF: 1 ferrous sulfate 325 mg (65 mg iron) tablet 650 mg PO TID RF: 0 vitamin B complex [B Complex-Vitamin B12] tablet 1 tab PO QDAY RF: 0 ascorbic acid (vitamin C) 250 mg tablet 250 mg PO DAILY RF: 0 (DME) blood-glucose meter [True Metrix Air Glucose Meter] misc See Dose Instructions applic .ROUTE .MEDSUPPLY Qty: 1 RF: 0 insulin detemir U-100 100 unit/mL (3 mL) insulin pen 5 unit SUB-Q .qam and 22 units qpm Qty: 15 RF: 3 cetirizine [Zyrtec] 10 mg tablet 10 mg PO QDAY RF: 0 (DME) lancets 33 gauge misc See Rx Instructions .ROUTE .MEDSUPPLY Qty: 100 RF: 1 zolpidem 10 mg tablet 5 mg PO QHS PRN (Reason: Sleep) Qty: 20 RF: 2 pantoprazole 40 mg tablet,delayed release (DR/EC) 40 mg PO BID Qty: 120 RF: 0 promethazine 12.5 mg tablet 12.5 mg PO Q6H PRN (Reason: vomiting) Qty: 10 RF: 0 lisinopril 10 mg tablet 10 mg PO DAILY 90 Days Qty: 90 RF: 3 duloxetine 30 mg capsule,delayed release(DR/EC) 30 mg PO QDAY Qty: 60 RF: 1 oxycodone-acetaminophen 10-325 mg tablet 1 tab PO Q12H PRN (Reason: pain) Qty: 56 RF: 0 ondansetron 4 mg tablet,disintegrating 4 mg PO Q8H PRN (Reason: nausea and vomiting) Qty: 10 RF: 0 Follow Up Plan Follow up with: Leonardo Beauchamp DO [Primary Care Provider] - Patient Disposition: Home, Self-Care Rehab Potential: Good I certify that the patient requires SNF services: No Overall status at discharge: patient is back to baseline Discharge Orders: Discharge Order (Routine); Ordered 07/18/21 Ordered By: Renato Sharpe
== END 2021-07-18 13:25 | disposition home or self-care (01) ==
LOC: MEDSUR 12:02 → ED 12:02 → MEDSUR 19:53
PROVIDERS: ADMIT Internal Medicine; ATTEND Internal Medicine